=== PATIENT | male | born 1940 | race Caucasian/White ===

== ENCOUNTER 2016-07-16 10:39 | Inpatient (IN) ==
--- NOTE | 2016-07-16 10:42 | Emergency Department Note ---
Disposition Clinical Impression: Acute exacerbation of chronic obstructive airways disease, Failure of outpatient treatment, Renal insufficiency Disposition: Admitted As Inpatient Condition: Fair Referrals: Jocelyne Santiago CNP [Primary Care Provider] - Forms: ED Satisfaction Letter SOB HPI - General Chief Complaint: ED Shortness of Breath/Dyspnea Stated Complaint: NICOLE Time Seen by Provider: 07/16/16 10:43 Source: patient, family Mode of arrival: private vehicle Limitations: no limitations Nursing Notes Reviewed: Yes Vital Signs Reviewed: Yes - History of Present Illness The patient reports that he has been fighting increased shortness of breath over the course of over a month. He has seen his primary care provider at least 3 times this been through several hours of antibiotics and steroids. He has also been doing his home aerosols and inhalers. He has completed a course of Levaquin and most recently has had antibiotic shots through the office performed this past Monday, Monday and Monday. This has been performed because he has been refusing to come to the hospital. Today he has had more shortness of breath, nonproductive cough and wheezing and he has relented and presented to the emergency department. He states his cough is rapidly but he does not bring anything up. He does have baseline wheezing and significant dyspnea on exertion. He has not on any home oxygen. He denies any chest pain other than his lungs are sore with coughing. He denies associated diaphoresis, nausea, jaw, arm or back pain. He does report some chills but denies fevers. Denies any new lower extremity swelling, immobilization or injury. He does have some swelling to his right ankle which has been evaluated in the last month with a negative Doppler. He denies any ill exposures. Pt Subjective Complaint: shortness of breath Onset (ago): week(s) Context: recent illness Severity: moderate, severe Consistency/Duration: gradually worsening Improves with: rest, bronchodilators Worsens with: exertion, coughing Known history of: COPD Associated symptoms: Reports: pain with inspiration, cough, wheezing. Denies: chest pain, fever, sputum production, orthopnea, lower extremity pain, polyuria , polydipsia, parasthesias, palpitations, hemoptysis, diaphoresis, nausea/ vomiting, syncope, abdominal pain, rash Treatment prior to arrival: bronchodilator, other (Antibiotics and steroids) Cough present: Yes Cough Description: Voluntary, Hacking, Rattling Cough Frequency: Intermittent Sputum production: No - Related Data Home oxygen amount: none Home Medications Medication Instructions Recorded Confirmed Amlodipine Besylate [Norvasc] 10 mg PO DAILY 12/08/14 07/16/16 Carvedilol [Coreg] 25 mg PO BID 12/08/14 07/16/16 HydrALAZINE 25 mg PO BID 12/08/14 07/16/16 LORazepam [Lorazepam] 2 mg PO HS 07/16/16 07/16/16 Melatonin 5 mg PO HS 07/16/16 07/16/16 Omeprazole 20 mg PO DAILY 07/16/16 07/16/16 Tamsulosin [Flomax] 0.8 mg PO DAILY 07/16/16 07/16/16 Allergies Allergy/AdvReac Type Severity Reaction Status Date / Time No Known Allergies Allergy Verified 12/08/14 15:22 All systems ED: reviewed and negative except as stated. Past Medical History - Past Medical History Attestation: Yes The following information was validated with the patient. Source: patient, old records reviewed, obtained from family, nursing notes reviewed Medical history: Reports: COPD, coronary artery disease, CVA, myocardial infarction, osteoporosis, peripheral artery disease, renal disease (Creatinine 1.4-1.6), syncope, TIA, other (Lipoma on the upper chest, benign prostatic hypertrophy) Surgical history: Reports: angioplasty/stent (3), LE vascular intervention Psychiatric history: Reports: anxiety - Social History Smoking Status: Light tobacco smoker Smokeless Tobacco Status: Yes (chewing tobacco) Alcohol use: Reports: none Drug use: Reports: none Physical Exam - General Limitations: no limitations General appearance: alert, in no apparent distress - Head Head exam: atraumatic, normocephalic, normal inspection - Eye Eye exam: Present: normal appearance, PERRL, EOMI. Absent: scleral icterus, conjunctival injection - ENT ENT exam: normal exam, normal oropharynx, mucous membranes moist - Neck Neck exam: Present: normal inspection, full ROM, trachea midline - Chest Chest inspection: Present: normal inspection, symmetric chest wall rise, other ( Large lipoma over the region of the manubrium.). Absent: tenderness - Respiratory Respiratory exam: Present: respiratory distress, wheezes, prolonged expiratory phase. Absent: accessory muscle use - Cardiovascular Cardiovascular exam: Present: regular rate, normal rhythm, normal heart sounds. Absent: tachycardia, JVD - Abdominal Exam Abdominal exam: Present: soft, Non-Tender, normal bowel sounds. Absent: tenderness, distention, guarding, rebound, rigidity - Extremities Exam Extremities exam: Present: normal inspection, full ROM, normal capillary refill. Absent: tenderness, pedal edema, calf tenderness - Expanded Lower Extremity Exam Neurovascular/Tendon exam: Present: normal capillary refill. Absent: motor deficit, sensory deficit, tendon deficit Gait: observed and normal - Back Exam Back exam: Present: normal inspection, full ROM. Absent: tenderness - Neurological Exam Neurological exam: Present: alert, oriented X3, normal gait. Absent: motor sensory deficit - Psychiatric Psychiatric exam: Present: normal affect, normal mood - Skin Skin exam: Present: warm, dry, intact, normal color. Absent: diaphoresis, pallor Course Course Narrative: All labs, x-rays and imaging is discussed with the patient and his daughter. He has had extensive outpatient treatment of this with clear outpatient failure. It is recommended that he be brought in the hospital for more intensive treatment. This has been discussed with Dr. Marquez and verbal orders obtained for his observation period. Vital Signs Temperature 99.0 F 07/16/16 10:47 Pulse Rate 70 07/16/16 10:47 Respiratory Rate 28 07/16/16 10:47 Blood Pressure 144/79 07/16/16 10:47 O2 Sat by Pulse Oximetry 90 L 07/16/16 10:47 Temperature 99.0 F 07/16/16 10:49 Pulse Rate 75 07/16/16 11:31 Respiratory Rate 24 07/16/16 11:31 Blood Pressure 125/78 07/16/16 11:31 O2 Sat by Pulse Oximetry 95 07/16/16 11:31 Oxygen Delivery Oxygen Delivery Nasal Cannula Shortness of Breath/Dyspnea - Differential Diagnosis Likely: acute exacerbation of chronic obstructive airways disease, pneumonia, asthma with exacerbation - Medical Records Medical records reviewed: Yes I reviewed the patient's medical records. XR/XR chest 2V IMPRESSION: Chronic bibasilar atelectasis and/or fibrosis. No acute process seen. D/ / 07/04/2016 17:28:15 Pedro Abrams MD / [facility] XR/XR ankle complete min 3V RT IMPRESSION: No acute osseous abnormality. D/ / 06/23/2016 16:13:41 Karlo Gipson MD / Shyanne Obando CT/CT chest wo con IMPRESSION: 1. No acute abnormality in the chest. 2. 7 mm right lower lobe nodule, which may be a partially calcified granuloma. Follow-up per the CT Fleischner criteria is recommended. 3. Moderate centrilobular emphysema. 4. Calcified pleural plaque, consistent with prior asbestos exposure. 5. Severe coronary artery disease. 6. Large superior anterior chest wall lipoma. D/ 09/22/2015 18:16:37 Joseph Tafoya MD / Carmen Badillo - Lab Data Lab results reviewed: Yes I reviewed the patient's lab results. Result diagrams: 07/16/16 11:10 07/16/16 11:10 Lab Results 07/16/16 07/16/16 07/16/16 Range/Units 11:10 11:10 11:10 WBC 10.6 (4.3-11.1) K/mcL RBC 4.85 (4.19-5.50) M/mcL Hgb 13.5 (12.9-16.9) g/dL Hct 40.9 (37.5-50.1) % MCV 84.3 (83.0-100.0) fL MCH 27.8 L (28.0-33.3) pg MCHC 33.0 (31.6-35.5) g/dL RDW 16.3 H (11.5-14.5) % Plt Count 213 (140-400) K/mcL MPV 9.1 L (9.4-12.4) fL Immature Gran % 0.6 (0-4) % Seg Neutrophils % 74.8 % Lymphocytes % 10.1 % Monocytes % 10.4 % Eosinophils % 3.9 % Basophils % 0.2 % Neutrophils # 8.0 (1.6-8.9) K/mcL Lymphocytes # 1.1 (0.6-4.6) K/mcL Monocytes # 1.1 (0.0-1.3) K/mcL Eosinophils # 0.4 (0.0-0.6) K/mcL Basophils # 0.0 (0.0-0.2) K/mcL PT 11.0 (9.4-12.1) Seconds INR 1.0 APTT 28.6 (26.0-36.0) Seconds VBG Lactic Acid (0.5-2.2) mmol/L Sodium 139 (136-145) mEq/L Potassium 4.5 (3.5-4.5) mEq/L Chloride 102 (98-109) mEq/L Carbon Dioxide 25 (19-29) mEq/L BUN 39 H (8-26) mg/dL Creatinine 1.60 H (0.72-1.25) mg/dL Est GFR ( Amer) 51 L (> 60) Est GFR (Non-Af Amer) 42 L (> 60) BUN/Creatinine Ratio 24 (6-26) Glucose 121 H (70-99) mg/dL Calculated Osmolality 299 (280-300) Calcium 9.1 (8.6-10.8) mg/dL Troponin I (0-0.03) ng/mL B-Natriuretic Peptide (0-100) pg/mL 07/16/16 07/16/16 07/16/16 Range/Units 11:10 11:10 11:10 WBC (4.3-11.1) K/mcL RBC (4.19-5.50) M/mcL Hgb (12.9-16.9) g/dL Hct (37.5-50.1) % MCV (83.0-100.0) fL MCH (28.0-33.3) pg MCHC (31.6-35.5) g/dL RDW (11.5-14.5) % Plt Count (140-400) K/mcL MPV (9.4-12.4) fL Immature Gran % (0-4) % Seg Neutrophils % % Lymphocytes % % Monocytes % % Eosinophils % % Basophils % % Neutrophils # (1.6-8.9) K/mcL Lymphocytes # (0.6-4.6) K/mcL Monocytes # (0.0-1.3) K/mcL Eosinophils # (0.0-0.6) K/mcL Basophils # (0.0-0.2) K/mcL PT (9.4-12.1) Seconds INR APTT (26.0-36.0) Seconds VBG Lactic Acid 0.9 (0.5-2.2) mmol/L Sodium (136-145) mEq/L Potassium (3.5-4.5) mEq/L Chloride (98-109) mEq/L Carbon Dioxide (19-29) mEq/L BUN (8-26) mg/dL Creatinine (0.72-1.25) mg/dL Est GFR ( Amer) (> 60) Est GFR (Non-Af Amer) (> 60) BUN/Creatinine Ratio (6-26) Glucose (70-99) mg/dL Calculated Osmolality (280-300) Calcium (8.6-10.8) mg/dL Troponin I 0.02 (0-0.03) ng/mL B-Natriuretic Peptide 40 (0-100) pg/mL - Radiology Data Radiology results reviewed: Yes I reviewed the patient's radiology results. Single view chest x-ray is performed. This does not demonstrate evidence for infiltrate, effusion, pneumothorax, foreign body or heart failure. The cardiac silhouette is normal. The patient is hyperexpanded consistent with COPD and does have some basilar atelectasis present. I do not see abnormality to the osseous structures of the chest. Images are compared to chest x-ray from 2016. This is on my interpretation. Impressions Chest X-Ray 07/16/16 10:49 IMPRESSION: Bibasilar atelectasis or scarring. Sequela of granulomatous disease. D/ / Brandan Cook MD / Brandan Cook MD Interpreting Provider: Brandan Cook MD - EKG Data EKG attestation: Yes I reviewed and interpreted this EKG. EKG shows normal: Reports: sinus rhythm, axis, intervals, QRS complexes, ST-T waves Rate: Reports: normal (77) Rhythm: Reports: PVC's Interpretation: Reports: no acute changes, nonspecific ST-T wave changes
[2016-07-16] MEDS ORDERED: Ipratropium/Albuterol Neb 3 ML IH ONE (10:49)
[2016-07-16] MEDS ORDERED: CefTRIAXone 1,000 MG in D5% in Water (Mini-Bag+) 100 ML IVPB ONE (10:49)
[2016-07-16] MEDS ORDERED: Azithromycin 250 MG TABLET PO ONE (10:49)
[2016-07-16] MEDS ORDERED: 0.9 % Sodium Chloride 1,000 ML IVC SCH ×2 (11:15→12:09)
[2016-07-16 11:18] LABS: Basophils % 0.2 %; Eosinophils # 0.4 K/mcL (0.0-0.6); Eosinophils % 3.9 %; Hematocrit 40.9 % (37.5-50.1); Hemoglobin 13.5 g/dL (12.9-16.9); Immature Granulocytes % 0.6 % (0-4); Lymphocytes # 1.1 K/mcL (0.6-4.6); Lymphocytes % 10.1 %; Mean Corpuscular Hemoglobin 27.8 pg (28.0-33.3); Mean Corpuscular Volume 84.3 fL (83.0-100.0); Mean Platelet Volume 9.1 fL (9.4-12.4); Monocytes # 1.1 K/mcL (0.0-1.3); Monocytes % 10.4 %; Platelet Count 213 K/mcL (140-400); Red Blood Count 4.85 M/mcL (4.19-5.50); Red Cell Distribution Width 16.3 % (11.5-14.5); Segmented Neutrophils % 74.8 %
[2016-07-16 11:26] LABS: Activated Partial Thrombo Time 28.6 Seconds (26.0-36.0)
[2016-07-16 11:33] LABS: Calcium 9.1 mg/dL (8.6-10.8); Potassium 4.5 mEq/L (3.5-4.5)
[2016-07-16] MEDS ORDERED: Acetaminophen 325 MG TABLET PO PRN (12:09)
[2016-07-16] MEDS ORDERED: Albuterol 2.5 MG/3 ML NEBULIZER IH PRN (12:09)
[2016-07-16] MEDS ORDERED: Ibuprofen 400 MG TABLET PO PRN (12:09)
[2016-07-16] MEDS ORDERED: MOM Conc 10 ML UD.LIQ PO PRN (12:09)
[2016-07-16] MEDS ORDERED: Naloxone 0.4 MG/ML INJ IVP PRN (12:09)
[2016-07-16] MEDS ORDERED: Ondansetron ODT 4 MG TAB.RAPDIS SL PRN (12:09)
[2016-07-16] MEDS ORDERED: Ipratropium/Albuterol Neb 3 ML IH SCH (16:00)
[2016-07-16] MEDS ORDERED: MethylPREDNISolone 40 MG/ML VIAL IVP SCH (16:00)
--- NOTE | 2016-07-16 19:22 | Internal Med History&Physical ---
Date of Encounter: 07/16/16 Time of Encounter: 18:30 Assessment and Plan (1) Dyspnea Current visit: Yes Status: Acute A chest CT will be ordered without contrast. D-dimer will be done. Qualifiers: Dyspnea type: unspecified Qualified Code(s): R06.00 - Dyspnea, unspecified (2) Hypertension Current visit: Yes Status: Chronic Continue Norvasc, Coreg, and hydralazine. Qualifiers: Hypertension type: essential hypertension Qualified Code(s): I10 - Essential (primary) hypertension (3) CKD (chronic kidney disease) stage 3, GFR 30-59 ml/min Current visit: Yes Status: Acute IV fluids will be given and renal indices will be monitored. (4) BPH (benign prostatic hyperplasia) Current visit: Yes Status: Chronic Continue Flomax. We will check postvoid residual Qualifiers: Prostatic enlargement morphology: unspecified morphology Lower urinary tract symptom presence: symptoms present Qualified Code(s): N40.1 - Benign prostatic hyperplasia with lower urinary tract symptoms Internal Medicine - H&P: HPI Chief complaint: Dyspnea Admitted From: Home Plans for Post Hospital Care: Home History of present illness: Mr. Fonseca is a 76 year old male who came to the hospital stating he had increasing dyspnea over the past few weeks. He saw his PCP approximately 12 days ago and was told he should come to the hospital. He declined to do that so was given daily IM injections of antibiotic for 3 consecutive days and then placed on Levaquin orally for one week. He also received prednisone and nebulizer medication. He finished the Levaquin prescription approximately 3 days ago without feeling improvement. He came to the emergency room and was admitted to [facility] for ongoing care needs. His respiratory history is significant for having smoked from age [age] up to 2 packs per day. He had PFTs approximately 2010 and was told he had mild COPD. He does not use home oxygen. He has had minimal chest pain that seems to be worse on inspiration. He has had a cough that has generally been nonproductive. He had a chest CT September 2015 which showed a 7 mm right lower lobe nodule and moderate centrilobular emphysema. There was calcified pleural plaque consistent with prior asbestos exposure. Follow-up chest CT was recommended in 6-12 months Past [facility] HX - Past Medical History Medical history: COPD, coronary artery disease, CVA, myocardial infarction, osteoporosis, peripheral artery disease, renal disease, syncope, TIA, other Psychiatric history: anxiety - Past Surgical History Surgical History: angioplasty/stent, LE vascular intervention - Social History Smoking Status: Light tobacco smoker Smokeless Tobacco Status: Yes (chewing tobacco) Alcohol use: none Drug use: none Internal Medicine - H&P: Meds Amlodipine Besylate [Norvasc] 10 mg PO DAILY 12/08/14 [History] Carvedilol [Coreg] 25 mg PO BID 12/08/14 [History] HydrALAZINE 25 mg PO DAILY 12/08/14 [History] LORazepam [Lorazepam] 2 mg PO HS 07/16/16 [History] Melatonin 5 mg PO HS 07/16/16 [History] Omeprazole 20 mg PO DAILY 07/16/16 [History] Tamsulosin [Flomax] 0.4 mg PO DAILY 07/16/16 [History] Allergies No Known Allergies Allergy (Verified 12/08/14 15:22) All Systems PM: A 10-system review of systems was performed and is negative for pertinent findings except as documented above in the HPI. Review of systems: Gen.: His weight is increased approximately 14 pounds in the past year Cardiovascular: He has history of hypertension. He has known ASHD status post RI with 3 stents. His most recent stent and heart catheter were 2016 at [facility]. He denies known heart failure DVT or pulmonary embolus Respiratory: As per history of present illness GI: He denies disorders of his liver gallbladder or exocrine pancreas : He has BPH and takes Flomax. He has had multiple UTIs in the past. He has been told he has a kidney cyst. He was unaware he had chronic kidney disease. Neurologic: He claims he had intracranial bleed resulting in mild left leg weakness. Denies seizures Endocrine: He has hyperlipidemia but denies diabetes or thyroid disease Hematology/oncology: He has had skin cancers but denies internal malignancies or other blood disorders or anemia Psychiatric: He denies anxiety depression or other mental health issues Musk skeletal: He has minimal arthritis. He is uncertain if he has been diagnosed with gout. He denies other bone joint or muscle disorders. - Constitutional Vitals: Temp Pulse Resp BP Pulse Ox 97.7 F 88 20 145/77 96 07/16/16 18:23 07/16/16 18:23 07/16/16 18:23 07/16/16 18:23 07/16/16 18:23 Exam: Gen.: He is a well-developed well-nourished male lying in bed who appears in no severe distress at present time. HEENT: Head is atraumatic and normocephalic. Eyes: EOMI. There is no scleral icterus. Mouth: Mucosa is moist. Neck: Supple and nontender. There is no thyromegaly or adenopathy noted. Heart: Regular without murmurs gallops or ectopics. Lungs: No wheezes or crackles are heard. Abdomen: Soft and nontender. No masses or guarding are noted. Extremities: There is no cyanosis edema or clubbing noted. Dorsalis pedis and posterior tibial pulses are 1-2 over 2 bilaterally. Neurologic: Mental status: He is talkative and a good historian. Cranial nerves : Smile is symmetric. Forehead wrinkles bilaterally. Tongue protrudes midline. EOMI. Motor: There is no pronator drift. Cerebellar: Finger to nose is intact bilaterally. Skin: Warm and dry. He has a large cystic mass in his upper midline sternal area subcutaneously Internal Med - H&P Results - Labs CBC & Chem 7: 07/16/16 11:10 07/16/16 11:10
[2016-07-16] MEDS ORDERED: *HR* LORazepam 1 MG TABLET PO SCH (21:00)
[2016-07-16] MEDS ORDERED: Melatonin 3 MG TABLET PO SCH (21:00)
[2016-07-16] MEDS: Lactobacillus 1 EACH CAP.SPRINK PO SCH (21:47)
[2016-07-17 05:58] LABS: Basophils % 0.1 %; Eosinophils % 0.1 %; Hematocrit 35.7 % (37.5-50.1); Hemoglobin 11.5 g/dL (12.9-16.9); Immature Granulocytes % 0.6 % (0-4); Lymphocytes # 0.8 K/mcL (0.6-4.6); Lymphocytes % 6.6 %; Mean Corpuscular HGB Conc 32.2 g/dL (31.6-35.5); Mean Corpuscular Hemoglobin 27.4 pg (28.0-33.3); Mean Corpuscular Volume 85.2 fL (83.0-100.0); Mean Platelet Volume 9.6 fL (9.4-12.4); Monocytes # 0.3 K/mcL (0.0-1.3); Monocytes % 2.5 %; Neutrophils # 10.3 K/mcL (1.6-8.9); Platelet Count 202 K/mcL (140-400); Red Blood Count 4.19 M/mcL (4.19-5.50); Red Cell Distribution Width 15.9 % (11.5-14.5); Segmented Neutrophils % 90.1 %
[2016-07-17] MEDS ORDERED: *HR* Enoxaparin 40 MG/0.4 ML SYRINGE SQ SCH (06:00)
[2016-07-17 06:21] LABS: Albumin 2.6 g/dL (3.5-5.0); Albumin/Globulin Ratio 0.9 (1.1-2.2); Bilirubin,Total 0.2 mg/dL (0.2-1.2); Calcium 8.4 mg/dL (8.6-10.8); Potassium 4.9 mEq/L (3.5-4.5); Total Protein 5.6 g/dL (6.0-8.3)
[2016-07-17 07:00] VITALS: BP 176/90
[2016-07-17] MEDS ORDERED: PredniSONE 10 MG TABLET PO SCH (08:00)
[2016-07-17] MEDS ORDERED: NON-FORMULARY MEDICATION 1 EACH EACH (Omeprazole [Omeprazole] 20 MG) PO SCH (09:00)
[2016-07-17] MEDS ORDERED: Azithromycin 250 MG TABLET PO SCH (09:00)
[2016-07-17] MEDS ORDERED: CefTRIAXone 1,000 MG in D5% in Water (Mini-Bag+) 100 ML IVPB SCH (09:00)
[2016-07-17] MEDS: Lactobacillus 1 EACH CAP.SPRINK PO SCH (09:38)
--- NOTE | 2016-07-17 11:04 | Discharge Summary ---
Date of Encounter: 07/17/16 Time of Encounter: 10:50 - Discharge Diagnosis (1) Pneumonia Priority: Primary Status: Acute Qualifiers: Pneumonia type: due to unspecified organism Laterality: right Lung location: lower lobe of lung Qualified Code(s): J18.1 - Lobar pneumonia, unspecified organism (2) Hypertension Priority: Secondary Status: Chronic Qualifiers: Hypertension type: essential hypertension Qualified Code(s): I10 - Essential (primary) hypertension (3) CKD (chronic kidney disease) stage 3, GFR 30-59 ml/min Priority: Secondary Status: Chronic (4) BPH (benign prostatic hyperplasia) Priority: Secondary Status: Chronic Qualifiers: Prostatic enlargement morphology: unspecified morphology Lower urinary tract symptom presence: symptoms present Qualified Code(s): N40.1 - Benign prostatic hyperplasia with lower urinary tract symptoms - Discharge Medications Prescriptions: Cefuroxime PO [Ceftin] 500 mg PO Q12HR #10 tablet Azithromycin [Zithromax] 250 mg PO DAILY #5 tablet Lactobacillus [Culturelle] 1 each PO BID #10 cap.sprink Home Medications: Amlodipine Besylate [Norvasc] 10 mg PO DAILY 12/08/14 [History] Carvedilol [Coreg] 25 mg PO BID 12/08/14 [History] HydrALAZINE 25 mg PO DAILY 12/08/14 [History] LORazepam [Lorazepam] 2 mg PO HS 07/16/16 [History] Melatonin 5 mg PO HS 07/16/16 [History] Omeprazole 20 mg PO DAILY 07/16/16 [History] Tamsulosin [Flomax] 0.4 mg PO DAILY 07/16/16 [History] Azithromycin [Zithromax] 250 mg PO DAILY #5 tablet 07/17/16 [Rx] Cefuroxime PO [Ceftin] 500 mg PO Q12HR #10 tablet 07/17/16 [Rx] Lactobacillus [Culturelle] 1 each PO BID #10 cap.sprink 07/17/16 [Rx] Allergies/Adverse Reactions: Allergies No Known Allergies Allergy (Verified 12/08/14 15:22) Date of admission: 07/16/16 19:08 Primary care physician: Jocelyne Santiago CNP - Patient Status Disposition: Home, Self-Care Condition: Fair Functional capacity at discharge: uses cane/walker Overall status at discharge: patient is progressing back to baseline - Discharge Instructions Follow Up With: Jocelyne Santiago CNP [Primary Care Provider] - 1 week - Diet and Activity Activity: resume usual activities as tolerated Diet: advance to your usual diet Hospital course: Mr. Fonseca is a 76 year old male who came to the hospital stating he had increasing dyspnea over the past few weeks. He saw his PCP approximately 12 days ago and was told he should come to the hospital. He declined to do that so was given daily IM injections of antibiotic for 3 consecutive days and then placed on Levaquin orally for one week. He also received prednisone and nebulizer medication. He finished the Levaquin prescription approximately 3 days ago without feeling improvement. He came to the emergency room and was admitted to [facility] for ongoing care needs. Initial orders were written by the emergency room physician. I saw him on July 16 and performed a history and physical. He was started empirically on Rocephin and Zithromax. A chest CT was ordered and showed right lower lobe infiltrate. There were stable right lower lobe nodules compared to the study of 12/30/2015. Follow-up study should be done at 18-24 months. His PCP can coordinate this. D-dimer was 767 which is acceptable for age corrected normal range. When I saw him on July 17 he felt clinically improved. His IV became dislodged and several attempts at restarting it were unsuccessful. He felt he was stable for discharge home which I felt was reasonable. He will have room air oximetry checked prior to discharge on a 6 minute walk. He will follow with his PCP Abby Santiago CNP within 1 week. He will continue on antibiotic and probiotic for 5 additional days at discharge. - Time Spent with Patient Total time spent providing and/or coordinating discharge services: - Constitutional Vitals: Temp Pulse Resp BP Pulse Ox 97.5 F L 95 20 176/90 96 07/17/16 06:56 07/17/16 06:56 07/17/16 06:56 07/17/16 06:56 07/17/16 06:56 - VTE Documentation of Mechanical Device: Graduated compression elastic hosiery
--- NOTE | 2016-07-18 15:20 | Electrocardiograph Report ---
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
== END 2016-07-17 13:59 | disposition home or self-care (01) | DRG 190 ==
LOC: INPPIK 10:39 → EMEROOPIK 10:39 → INPPIK 13:11
PROVIDERS: ADMIT Internal Medicine; ATTEND Internal Medicine

== ENCOUNTER 2016-08-08 09:26 | Observation (INO) ==
--- NOTE | 2016-08-08 09:50 | Emergency Department Note ---
Disposition Clinical Impression: CKD (chronic kidney disease) stage 3, GFR 30-59 ml/min, Viral infection, Weakness generalized Disposition: Admitted As Inpatient Condition: Good Referrals: Jocelyne Santiago CNP [Primary Care Provider] - Forms: ED Satisfaction Letter General Adult HPI - General Chief complaint: ED Upper Respiratory Infection Stated complaint: Flu like symptoms Time Seen by Provider: 08/08/16 09:42 Source: patient Mode of arrival: private vehicle Limitations: no limitations Nursing Notes Reviewed: Yes Vital Signs Reviewed: Yes - History of Present Illness HPI Narrative: Patient presents with a chief complaint of "I do not feel good" and specific concern of that he has the flu or pneumonia. He states that he has had 3-4 days of "hurting all over" with some increase feet and leg swelling that has limited his ability to stand or walk. He relates he has had a cough which is nonproductive. He has been having a feeling of fevers and chills but has not checked his temperature. He reports nausea without vomiting resulting in significant decrease in oral intake. He states he has had some diarrhea without blood or mucus. He denies abdominal pain other than nausea and midepigastric region. He denies any back pain that is new. He denies urinary increased frequency but states he urinates all the time anyway. He denies any ill exposures or new rashes. He states he does get weak and dizzy with standing and has nearly fallen a couple times. He has been brought in by family he has not been able to take care of himself with this illness. They did call to the primary care provider who advised that he be brought immediately to the emergency department. Onset (ago): day(s) (4) Location: other (Generalized body pain and fatigue) Radiation: non-radiation Pain Severity: moderate Pain Scale: 6 Quality: aching, dull Consistency: constant Improves with: nothing Worsens with: movement Associated symptoms: Reports: cough, fever/chills, headaches, loss of appetite, malaise, nausea/vomiting, shortness of breath, weakness. Denies: confusion, chest pain, diaphoresis, rash, seizure, syncope - Related Data Home Medications Medication Instructions Recorded Confirmed Amlodipine Besylate [Norvasc] 10 mg PO DAILY 12/08/14 07/16/16 Carvedilol [Coreg] 25 mg PO BID 12/08/14 07/16/16 HydrALAZINE 25 mg PO DAILY 12/08/14 07/16/16 LORazepam [Lorazepam] 2 mg PO HS 07/16/16 07/16/16 Melatonin 5 mg PO HS 07/16/16 07/16/16 Omeprazole 20 mg PO DAILY 07/16/16 07/16/16 Tamsulosin [Flomax] 0.4 mg PO DAILY 07/16/16 07/16/16 Allergies Allergy/AdvReac Type Severity Reaction Status Date / Time No Known Allergies Allergy Verified 12/08/14 15:22 All systems ED: reviewed and negative except as stated. Past Medical History - Past Medical History Attestation: Yes The following information was validated with the patient. Source: patient, old records reviewed, obtained from family, nursing notes reviewed Medical history: Reports: COPD, coronary artery disease, CVA, myocardial infarction, osteoporosis, peripheral artery disease, renal disease, syncope, TIA , other Surgical history: Reports: angioplasty/stent, LE vascular intervention Psychiatric history: Reports: anxiety - Social History Smoking Status: Light tobacco smoker Smokeless Tobacco Status: Yes (chewing tobacco) Alcohol use: Reports: none Drug use: Reports: none Physical Exam - General Limitations: no limitations General appearance: alert, in no apparent distress - Head Head exam: atraumatic, normocephalic, normal inspection - Eye Eye exam: Present: normal appearance, PERRL, EOMI. Absent: scleral icterus, conjunctival injection - ENT ENT exam: normal exam, normal oropharynx, mucous membranes moist - Neck Neck exam: Present: normal inspection, full ROM, trachea midline. Absent: tenderness, meningismus - Chest Chest inspection: Present: normal inspection, symmetric chest wall rise - Respiratory Respiratory exam: Present: normal lung sounds bilaterally. Absent: respiratory distress, wheezes, prolonged expiratory phase - Cardiovascular Cardiovascular exam: Present: regular rate, normal rhythm, normal heart sounds. Absent: tachycardia - Abdominal Exam Abdominal exam: Present: soft, Non-Tender, normal bowel sounds. Absent: tenderness, distention, guarding, rebound, rigidity - Extremities Exam Extremities exam: Present: normal inspection, full ROM, normal capillary refill , pedal edema (2-3+). Absent: tenderness, calf tenderness - Expanded Lower Extremity Exam Neurovascular/Tendon exam: Present: normal capillary refill. Absent: motor deficit, sensory deficit, tendon deficit Gait: not tested/not observed - Back Exam Back exam: Present: normal inspection, full ROM. Absent: tenderness, CVA tenderness (R), CVA tenderness (L) - Neurological Exam Neurological exam: Present: alert, oriented X3 - Psychiatric Psychiatric exam: Present: normal affect, normal mood - Skin Skin exam: Present: warm, dry, intact, pallor. Absent: rash, diaphoresis Course Course Narrative: All lab, EKG and imaging is discussed with the patient and family. Given the patient's weakness and inability to get around his single residence, I feel be best to bring him in for observation, hydration and to follow him clinically to better assess this safety and resources for discharge. Pages been placed to Dr. Marquez to assist in his inpatient treatment. 1210: Dr. Marquez agrees with observation this patient. We are awaiting bed placement. Vital Signs Temperature 98.5 F 08/08/16 09:27 Pulse Rate 69 08/08/16 09:27 Respiratory Rate 18 08/08/16 09:27 Blood Pressure 140/66 08/08/16 09:27 O2 Sat by Pulse Oximetry 94 08/08/16 09:27 Temperature 98.5 F 08/08/16 11:58 Pulse Rate 73 08/08/16 11:58 Respiratory Rate 22 08/08/16 11:58 Blood Pressure 134/66 08/08/16 11:58 O2 Sat by Pulse Oximetry 91 08/08/16 11:58 Oxygen Delivery Oxygen Delivery Room Air Medical Decision Making - Medical Records Medical records reviewed: Yes I reviewed the patient's medical records. - Lab Data Lab results reviewed: Yes I reviewed the patient's lab results. Lab results narrative: Influenza A and B are negative. The patient's usual creatinine is in a range of 1.6-1.97 over the past 4 months. Result diagrams: 08/08/16 10:00 08/08/16 10:00 Lab Results 08/08/16 08/08/16 08/08/16 Range/Units 10:00 10:00 10:00 WBC 13.7 H (4.3-11.1) K/mcL RBC 4.14 L (4.19-5.50) M/mcL Hgb 11.6 L (12.9-16.9) g/dL Hct 36.1 L (37.5-50.1) % MCV 87.2 (83.0-100.0) fL MCH 28.0 (28.0-33.3) pg MCHC 32.1 (31.6-35.5) g/dL RDW 16.4 H (11.5-14.5) % Plt Count 174 (140-400) K/mcL MPV 9.5 (9.4-12.4) fL Immature Gran % 0.5 (0-4) % Seg Neutrophils % 76.9 % Lymphocytes % 8.1 % Monocytes % 13.6 % Eosinophils % 0.8 % Basophils % 0.1 % Neutrophils # 10.5 H (1.6-8.9) K/mcL Lymphocytes # 1.1 (0.6-4.6) K/mcL Monocytes # 1.9 H (0.0-1.3) K/mcL Eosinophils # 0.1 (0.0-0.6) K/mcL Basophils # 0.0 (0.0-0.2) K/mcL Sodium 140 (136-145) mEq/L Potassium 4.4 (3.5-4.5) mEq/L Chloride 102 (98-109) mEq/L Carbon Dioxide 26 (19-29) mEq/L BUN 27 H (8-26) mg/dL Creatinine 1.93 H (0.72-1.25) mg/dL Est GFR ( Amer) 41 L (> 60) Est GFR (Non-Af Amer) 34 L (> 60) BUN/Creatinine Ratio 14 (6-26) Glucose 121 H (70-99) mg/dL Calculated Osmolality 296 (280-300) Calcium 9.0 (8.6-10.8) mg/dL Total Bilirubin 1.1 (0.2-1.2) mg/dL Direct Bilirubin 0.4 (0.0-0.5) mg/dL Indirect Bilirubin 0.7 (0.0-1.2) mg/dL AST 12 (5-34) Units/L ALT 10 (0-55) Units/L Alkaline Phosphatase 39 (38-126) Units/L Troponin I 0.03 (0-0.03) ng/mL B-Natriuretic Peptide (0-100) pg/mL Serum Total Protein 6.5 (6.0-8.3) g/dL Albumin 2.8 L (3.5-5.0) g/dL Globulin 3.7 H (2.4-3.5) g/dL Albumin/Globulin Ratio 0.8 L (1.1-2.2) Urine Color (Yellow) Urine Clarity (Clear) Urine pH (5.0-8.0) pH Units Ur Specific Seffner (1.010-1.025) Urine Protein (Neg-Trace) mg/dL Urine Glucose (UA) (Normal) mg/dL Urine Ketones (Negative) mg/dL Urine Blood (Negative) Urine Nitrite (Negative) Urine Bilirubin (Negative) Urine Urobilinogen (Normal) mg/dL Ur Leukocyte Esterase (Negative) Urine Microscopic RBC (0-3) per hpf Urine Microscopic WBC (0-3) per hpf Ur Squamous Epith Cells (None-Few) per lpf Amorphous Sediment (Few) Granular Casts (None Seen) per lpf Urine Mucus (Few) Ur Culture Indicated? (NO) 08/08/16 08/08/16 Range/Units 10:00 11:14 WBC (4.3-11.1) K/mcL RBC (4.19-5.50) M/mcL Hgb (12.9-16.9) g/dL Hct (37.5-50.1) % MCV (83.0-100.0) fL MCH (28.0-33.3) pg MCHC (31.6-35.5) g/dL RDW (11.5-14.5) % Plt Count (140-400) K/mcL MPV (9.4-12.4) fL Immature Gran % (0-4) % Seg Neutrophils % % Lymphocytes % % Monocytes % % Eosinophils % % Basophils % % Neutrophils # (1.6-8.9) K/mcL Lymphocytes # (0.6-4.6) K/mcL Monocytes # (0.0-1.3) K/mcL Eosinophils # (0.0-0.6) K/mcL Basophils # (0.0-0.2) K/mcL Sodium (136-145) mEq/L Potassium (3.5-4.5) mEq/L Chloride (98-109) mEq/L Carbon Dioxide (19-29) mEq/L BUN (8-26) mg/dL Creatinine (0.72-1.25) mg/dL Est GFR ( Amer) (> 60) Est GFR (Non-Af Amer) (> 60) BUN/Creatinine Ratio (6-26) Glucose (70-99) mg/dL Calculated Osmolality (280-300) Calcium (8.6-10.8) mg/dL Total Bilirubin (0.2-1.2) mg/dL Direct Bilirubin (0.0-0.5) mg/dL Indirect Bilirubin (0.0-1.2) mg/dL AST (5-34) Units/L ALT (0-55) Units/L Alkaline Phosphatase (38-126) Units/L Troponin I (0-0.03) ng/mL B-Natriuretic Peptide 76 (0-100) pg/mL Serum Total Protein (6.0-8.3) g/dL Albumin (3.5-5.0) g/dL Globulin (2.4-3.5) g/dL Albumin/Globulin Ratio (1.1-2.2) Urine Color Yellow (Yellow) Urine Clarity Clear (Clear) Urine pH 6.5 (5.0-8.0) pH Units Ur Specific Seffner 1.020 (1.010-1.025) Urine Protein >=300 H (Neg-Trace) mg/dL Urine Glucose (UA) Normal (Normal) mg/dL Urine Ketones Negative (Negative) mg/dL Urine Blood Negative (Negative) Urine Nitrite Negative (Negative) Urine Bilirubin Negative (Negative) Urine Urobilinogen Normal (Normal) mg/dL Ur Leukocyte Esterase Negative (Negative) Urine Microscopic RBC 0-3 (0-3) per hpf Urine Microscopic WBC 3-5 H (0-3) per hpf Ur Squamous Epith Cells Few (None-Few) per lpf Amorphous Sediment Few (Few) Granular Casts Few H (None Seen) per lpf Urine Mucus Few (Few) Ur Culture Indicated? NO (NO) - Radiology Data Radiology results reviewed: Yes I reviewed the patient's radiology results. Single view chest x-ray is performed. This does not demonstrate evidence for infiltrate, effusion, pneumothorax, foreign body or heart failure. The cardiac silhouette is normal. I do not see abnormality to the osseous structures of the chest. This is on my interpretation. Impressions Chest X-Ray 08/08/16 09:50 IMPRESSION: Stable pulmonary artery hypertension with no acute abnormality. D/ /08/2016 11:08:46 Timothy Maldonado MD / gabrielerter Interpreting Provider: Timothy Maldonado MD - EKG Data EKG #1 EKG attestation: Yes I reviewed and interpreted this EKG. EKG shows normal: sinus rhythm, axis, intervals, QRS complexes, ST-T waves Rate: normal (73) Rhythm: PVC's Interpretation: no acute changes, normal EKG
[2016-08-08] MEDS ORDERED: Ondansetron 4 MG/2 ML VIAL IVP ONE (09:52)
[2016-08-08] MEDS ORDERED: 0.9 % Sodium Chloride 1,000 ML IVC SCH ×2 (10:00→13:13)
[2016-08-08 10:10] LABS: Basophils % 0.1 %; Eosinophils # 0.1 K/mcL (0.0-0.6); Eosinophils % 0.8 %; Hematocrit 36.1 % (37.5-50.1); Hemoglobin 11.6 g/dL (12.9-16.9); Immature Granulocytes % 0.5 % (0-4); Lymphocytes # 1.1 K/mcL (0.6-4.6); Lymphocytes % 8.1 %; Mean Corpuscular HGB Conc 32.1 g/dL (31.6-35.5); Mean Corpuscular Volume 87.2 fL (83.0-100.0); Mean Platelet Volume 9.5 fL (9.4-12.4); Monocytes # 1.9 K/mcL (0.0-1.3); Monocytes % 13.6 %; Neutrophils # 10.5 K/mcL (1.6-8.9); Platelet Count 174 K/mcL (140-400); Red Blood Count 4.14 M/mcL (4.19-5.50); Red Cell Distribution Width 16.4 % (11.5-14.5); Segmented Neutrophils % 76.9 %
[2016-08-08 10:28] LABS: Albumin 2.8 g/dL (3.5-5.0); Albumin/Globulin Ratio 0.8 (1.1-2.2); Bilirubin,Direct 0.4 mg/dL (0.0-0.5); Bilirubin,Indirect 0.7 mg/dL (0.0-1.2); Bilirubin,Total 1.1 mg/dL (0.2-1.2); Globulin 3.7 g/dL (2.4-3.5); Potassium 4.4 mEq/L (3.5-4.5); Total Protein 6.5 g/dL (6.0-8.3)
[2016-08-08 11:19] LABS: Bilirubin,Urine Negative (Negative); Blood,Urine Negative (Negative); Clarity,Urine Clear (Clear); Color,Urine Yellow (Yellow); Glucose,Urine (UA) Normal (Normal); Ketones,Urine Negative (Negative); Leukocyte Esterase,Urine Negative (Negative); Nitrite,Urine Negative (Negative); PH,Urine 6.5 pH Units (5.0-8.0); Protein,Urine >=300 mg/dL (Neg-Trace); Urobilinogen,Urine Normal (Normal)
[2016-08-08 11:26] LABS: Amorphous Sediment,Urine Few (Few); Granular Casts,Urine Few per lpf (None Seen); Mucus,Urine Few (Few); RBC,Urine 0-3 per hpf (0-3); Squamous Epithelial Cell,Urine Few per lpf (None-Few)
--- NOTE | 2016-08-08 11:58 | Electrocardiograph Report ---
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
[2016-08-08] MEDS ORDERED: Ondansetron 4 MG/2 ML VIAL IVP PRN (13:13)
[2016-08-08] MEDS ORDERED: Naloxone 0.4 MG/ML INJ IVP PRN (13:13)
[2016-08-08] MEDS ORDERED: MOM Conc 10 ML UD.LIQ PO PRN (13:13)
--- NOTE | 2016-08-08 15:46 | Internal Med History&Physical ---
Date of Encounter: 08/08/16 Time of Encounter: 15:25 Assessment and Plan (1) Diarrhea Current visit: Yes Status: Acute Suspect viral gastroenteritis. He reports he has had no diarrhea today. Will observe without further workup at this time. Qualifiers: Diarrhea type: unspecified type Qualified Code(s): R19.7 - Diarrhea, unspecified (2) Anemia Current visit: Yes Status: Acute We will order anemia testing in a.m. Qualifiers: Anemia type: unspecified type Qualified Code(s): D64.9 - Anemia, unspecified (3) Hypertension Current visit: No Status: Chronic Continue Coreg. Discontinue amlodipine because of edema. Qualifiers: Hypertension type: essential hypertension Qualified Code(s): I10 - Essential (primary) hypertension (4) CKD (chronic kidney disease) stage 3, GFR 30-59 ml/min Current visit: Yes Status: Chronic We will monitor renal indices. Internal Medicine - H&P: HPI Chief complaint: Diarrhea and weakness Admitted From: Home Plans for Post Hospital Care: Home History of present illness: Mr. Fonseca is a 76 year old male who came to the emergency room stating he had diarrhea for the preceding 3 days with progressive weakness. He had nausea with no vomiting. He felt fevered and chilled at times. He had rhinorrhea and slight cough with little productivity. He was evaluated in emergency room and felt to have possible viral infection. He was admitted to [facility] floor for ongoing care needs. He was hospitalized at [facility] approximately 3 weeks ago with pneumonia. Chest CT showed right lower lobe infiltrate with stable right lower lobe nodules compared to 12/30/2015 study. Follow-up CT was recommended in 18-24 months. Past Med Surg Social Fam HX - Past Medical History Medical history: COPD, coronary artery disease, CVA, myocardial infarction, osteoporosis, peripheral artery disease, renal disease, syncope, TIA, other Psychiatric history: anxiety - Past Surgical History Surgical History: angioplasty/stent, LE vascular intervention - Social History Smoking Status: Light tobacco smoker Smokeless Tobacco Status: Yes (chewing tobacco) Alcohol use: none Drug use: none Internal Medicine - H&P: Meds Amlodipine Besylate [Norvasc] 10 mg PO DAILY 12/08/14 [History] Carvedilol [Coreg] 25 mg PO BID 12/08/14 [History] HydrALAZINE 25 mg PO DAILY 12/08/14 [History] LORazepam [Lorazepam] 2 mg PO HS 07/16/16 [History] Melatonin 5 mg PO HS 07/16/16 [History] Omeprazole 20 mg PO DAILY 07/16/16 [History] Tamsulosin [Flomax] 0.4 mg PO DAILY 07/16/16 [History] Allergies No Known Allergies Allergy (Verified 12/08/14 15:22) All Systems PM: A 10-system review of systems was performed and is negative for pertinent findings except as documented above in the HPI. Review of systems: Gen.: His weight is increased from 87.09 kg at the 07/16/2016 hospitalization to 91.626 kg now Cardiovascular: He has history of hypertension. He has known ASHD status post [place] with 3 stents. His most recent stent and heart catheter were 2015 at [facility]. He denies known heart failure DVT or pulmonary embolus Respiratory: He smoked from age [age] up to 2 packs per day. He had PFTs approximately 2011 was told he had mild COPD. He was recently prescribed home oxygen but states he wears it very little. He had chest CT done during his last hospitalization as described per history of present illness GI: He denies disorders of his liver gallbladder or exocrine pancreas : He has BPH and takes Flomax. He has had multiple UTIs in the past. He has been told he has a kidney cyst. He has chronic kidney disease stage III. Neurologic: He claims he had intracranial bleed resulting in mild left leg weakness. He denies seizures Endocrine: He has hyperlipidemia but denies diabetes or thyroid disease Hematology/oncology: He has had skin cancers but denies internal malignancies or other blood disorders or anemia Psychiatric: He denies anxiety depression or other mental health issues Musk skeletal: He has minimal arthritis. He is uncertain if he has been diagnosed with gout. He denies other bone joint or muscle disorders. - Constitutional Vitals: Temp Pulse Resp BP Pulse Ox 98.8 F 70 17 127/65 95 08/08/16 14:20 08/08/16 14:20 08/08/16 14:20 08/08/16 14:20 08/08/16 14:20 Exam: Gen.: He is a well-developed well-nourished male who appears in no significant distress at present time HEENT: Head is atraumatic and normal cephalic. Eyes: EOMI. There is no scleral icterus. Mouth: Mucosa is moist. Neck: Supple and nontender. There is no thyromegaly or adenopathy noted. Heart: Regular without murmurs gallops or ectopics. Lungs: Has diminished breath sounds diffusely. No wheezes or crackles are heard. Abdomen: Soft and nontender. There is no mass or guarding noted Extremities: He has trace -1+ edema of the dorsum of the feet and lower anterior shins bilaterally. Dorsalis pedis and posterior tibial pulses are trace palpable bilaterally. His feet are warm to touch. Neurologic: Mental status: He is talkative and seems to be a fair to good historian. Cranial nerves: Smile is symmetric. Forehead wrinkles bilaterally. Tongue protrudes midline. EOMI. Motor: There is no pronator drift. Cerebellar: Finger to nose is intact bilaterally. Skin: Warm and dry Internal Med - H&P Results - Labs CBC & Chem 7: 08/08/16 10:00 08/08/16 10:00
[2016-08-08] MEDS: *HR* LORazepam 1 MG TABLET PO SCH (19:45)
[2016-08-09 06:01] LABS: Basophils % 0.2 %; Eosinophils # 0.1 K/mcL (0.0-0.6); Eosinophils % 1.3 %; Hemoglobin 10.8 g/dL (12.9-16.9); Immature Granulocytes % 0.4 % (0-4); Lymphocytes % 9.9 %; Mean Corpuscular HGB Conc 31.8 g/dL (31.6-35.5); Mean Corpuscular Hemoglobin 27.8 pg (28.0-33.3); Mean Corpuscular Volume 87.6 fL (83.0-100.0); Mean Platelet Volume 9.6 fL (9.4-12.4); Monocytes # 1.5 K/mcL (0.0-1.3); Monocytes % 14.5 %; Neutrophils # 7.7 K/mcL (1.6-8.9); Platelet Count 171 K/mcL (140-400); Red Blood Count 3.88 M/mcL (4.19-5.50); Red Cell Distribution Width 16.1 % (11.5-14.5); Segmented Neutrophils % 73.7 %
[2016-08-09 06:20] LABS: Calcium 8.3 mg/dL (8.6-10.8); Magnesium 1.9 mg/dL (1.6-2.6); Potassium 4.1 mEq/L (3.5-4.5)
[2016-08-09 10:28] LABS: Folate 14.6 ng/mL (7.0-31.4)
--- NOTE | 2016-08-09 11:22 | Internal Med Progress Note ---
Date of Encounter: 08/09/16 Time of Encounter: 11:10 - Assessment and plan (1) Diarrhea Current Visit: Yes Status: Acute Assessment and plan: August 09. Appears resolved. Will not workup further. Qualifiers: Diarrhea type: unspecified type Qualified Code(s): R19.7 - Diarrhea, unspecified (2) Anemia Current Visit: Yes Status: Acute Assessment and plan: August 09. Anemia testing showed iron 19, transferrin saturation 9%, transferrin 144, and ferritin 576. B12 and folate were normal. We will give a trial of ferrous sulfate with vitamin C. Qualifiers: Anemia type: unspecified type Qualified Code(s): D64.9 - Anemia, unspecified (3) Hypertension Current Visit: No Status: Chronic Assessment and plan: August 09. Continue Coreg and remain off amlodipine. Blood pressures are satisfactory. Qualifiers: Hypertension type: essential hypertension Qualified Code(s): I10 - Essential (primary) hypertension (4) CKD (chronic kidney disease) stage 3, GFR 30-59 ml/min Current Visit: Yes Status: Chronic Assessment and plan: August 09. Continue to monitor renal indices. - Subjective Interval history: August 09. He has no new complaints and feels better. Diarrhea remains resolved - Constitutional Vitals: Temp Pulse Resp BP Pulse Ox 97.6 F 68 17 138/81 95 08/09/16 11:08 08/09/16 11:08 08/09/16 11:08 08/09/16 11:08 08/09/16 11:08 Exam: He is resting comfortably in bed and appears in no acute distress. His affect is bright and cheerful. His edema has lessened. I reviewed his medications and lab results. Internal Medicine: Result - Labs CBC & Chem 7: 08/09/16 05:30 08/09/16 05:30 Labs: Short CBC 08/09/16 Range/Units 05:30 WBC 10.5 (4.3-11.1) K/mcL Hgb 10.8 L (12.9-16.9) g/dL Hct 34.0 L (37.5-50.1) % Plt Count 171 (140-400) K/mcL Neutrophils # 7.7 (1.6-8.9) K/mcL BMP 08/09/16 05:30 Sodium 140 Potassium 4.1 Chloride 105 Carbon Dioxide 23 BUN 23 Creatinine 1.85 H Glucose 104 H Calcium 8.3 L - VTE Documentation of Mechanical Device: Graduated compression elastic hosiery Consult Discharge Plan - Plan Referrals: Jocelyne Santiago CNP [Primary Care Provider] - 1 week
[2016-08-09] MEDS: *HR* LORazepam 1 MG TABLET PO SCH (21:14)
[2016-08-09] MEDS: Albuterol 2.5 MG/3 ML NEBULIZER IH SCH (21:56)
[2016-08-10] MEDS: Albuterol 2.5 MG/3 ML NEBULIZER IH SCH ×2 (03:55→10:24)
[2016-08-10] MEDS ORDERED: Ascorbic Acid 500 MG TABLET PO SCH (06:30)
[2016-08-10 08:54] VITALS: BP 149/70
--- NOTE | 2016-08-10 10:05 | Discharge Summary ---
Date of Encounter: 08/10/16 Time of Encounter: 09:55 - Discharge Diagnosis (1) Diarrhea Priority: Primary Status: Resolved Qualifiers: Diarrhea type: unspecified type Qualified Code(s): R19.7 - Diarrhea, unspecified (2) Anemia Priority: Secondary Status: Acute Qualifiers: Anemia type: unspecified type Qualified Code(s): D64.9 - Anemia, unspecified (3) Hypertension Priority: Secondary Status: Chronic Qualifiers: Hypertension type: essential hypertension Qualified Code(s): I10 - Essential (primary) hypertension (4) CKD (chronic kidney disease) stage 3, GFR 30-59 ml/min Priority: Secondary Status: Chronic - Discharge Medications Prescriptions: Ascorbic Acid [Vitamin C] 500 mg PO DAILY #30 tablet Bumetanide 0.5 mg PO DAILY #30 tablet Ferrous Sulfate 325 mg PO DAILY #30 tablet Home Medications: Carvedilol [Coreg] 25 mg PO BID 12/08/14 [History] LORazepam [Lorazepam] 2 mg PO HS 07/16/16 [History] Melatonin 10 mg PO HS 07/16/16 [History] Omeprazole 20 mg PO DAILY 07/16/16 [History] Tamsulosin [Flomax] 0.4 mg PO DAILY 07/16/16 [History] Ascorbic Acid [Vitamin C] 500 mg PO DAILY #30 tablet 08/10/16 [Rx] Bumetanide 0.5 mg PO DAILY #30 tablet 08/10/16 [Rx] Ferrous Sulfate 325 mg PO DAILY #30 tablet 08/10/16 [Rx] Allergies/Adverse Reactions: Allergies No Known Allergies Allergy (Verified 12/08/14 15:22) Date of admission: 08/08/16 12:35 Primary care physician: Jocelyne Santiago CNP - Patient Status Disposition: Home, Self-Care Condition: Good Functional capacity at discharge: uses cane/walker Overall status at discharge: patient is progressing back to baseline - Discharge Instructions Follow Up With: Jocelyne Santiago CNP [Primary Care Provider] - 1 week - Diet and Activity Activity: resume usual activities as tolerated, wear oxygen at night Diet: advance to your usual diet Hospital course: Mr. Fonseca is a 76 year old male who came to the emergency room stating he had diarrhea for the preceding 3 days with progressive weakness. He had nausea with no vomiting. He felt fevered and chilled at times. He had rhinorrhea and slight cough with little productivity. He was evaluated in emergency room and felt to have possible viral infection. He was admitted to [facility] floor for ongoing care needs. Initial orders were written by the emergency room physician. I saw him on August 08 and performed a history and physical. He had no further diarrhea after admission. I felt he likely had viral gastroenteritis. WBC and left shift normalized by 08/09/2016. Anemia testing showed iron 19, transferrin saturation 9%, ferritin 576, transferrin 144, B12 325, and folate 14.6. He will continue with ferrous sulfate and vitamin C upon discharge. Norvasc was discontinued and his edema lessened. He will remain off Norvasc at discharge and start Bumex 0.5 mg daily. Hydrochlorothiazide will be discontinued. Blood pressure remained satisfactory. On August 10 he felt he was stable for discharge home. He will follow with his PCP Jocelyne Santiago CNP within 1 week. I encouraged him to wear oxygen at bedtime and with activity during the daytime. - Time Spent with Patient Total time spent providing and/or coordinating discharge services: - Constitutional Vitals: Temp Pulse Resp BP Pulse Ox 98.0 F 70 24 149/70 94 08/10/16 08:53 08/10/16 08:53 08/10/16 08:53 08/10/16 08:53 08/10/16 08:53 - VTE Documentation of Mechanical Device: Graduated compression elastic hosiery
[2016-08-11] MEDS ORDERED: Ascorbic Acid 500 MG TABLET PO SCH (06:30)
== END 2016-08-10 11:40 | disposition home or self-care (01) ==
LOC: EMEROOPIK 09:26 → INPPIK 09:26
PROVIDERS: ADMIT Internal Medicine; ATTEND Internal Medicine

== ENCOUNTER 2018-03-15 08:46 | Inpatient (IN) ==
--- NOTE | 2018-03-15 08:48 | Emergency Department Note ---
Disposition Clinical Impression: Renal failure, Dehydration, Pneumonia Disposition: Admitted As Inpatient Condition: Fair Referrals: Jocelyne Santiago CNP [Primary Care Provider] - Forms: ED Satisfaction Letter Time of Disposition: 11:30 SOB HPI - General Chief Complaint: ED Shortness of Breath/Dyspnea Stated Complaint: Shortness of breath Time Seen by Provider: 03/15/18 08:48 Source: patient Mode of arrival: ambulatory Limitations: no limitations Nursing Notes Reviewed: Yes Vital Signs Reviewed: Yes - History of Present Illness 77-year-old male who presents today with shortness of breath. Has been treated as an outpatient with antibiotics it is not getting better. He remains short of breath. Stated on antibiotics albuterol steroids at home. States his doctor did not know what else to do and so she sent him in for evaluation. He states he has been dealing with this for a few weeks. He states his previously been told it is a lung nodule on chest x-ray and saw electric organ assembler about it who told him it could go either way but has not had any recent follow-up for this. Pt Subjective Complaint: shortness of breath - Related Data Home Medications Medication Instructions Recorded Confirmed Carvedilol [Coreg] 25 mg PO BID 12/08/14 03/15/18 LORazepam [Lorazepam] 2 mg PO HS 07/16/16 03/15/18 Melatonin 10 mg PO HS 07/16/16 03/15/18 Omeprazole 20 mg PO DAILY 07/16/16 03/15/18 Tamsulosin [Flomax] 0.4 mg PO DAILY 07/16/16 03/15/18 Amlodipine Besylate 03/15/18 Sulfamethoxazole/Trimeth DS 03/15/18 [Bactrim Ds] Previous Rx's Medication Instructions Recorded Ascorbic Acid [Vitamin C] 500 mg PO DAILY #30 tablet 08/10/16 Ammonium Lactate [Amlactin] 1 appl TP BID #1 bottle 04/12/17 Bumetanide 0.5 mg PO Q48H 365 Days tablet 04/12/17 Doxycycline 100 mg PO BID #10 capsule 04/12/17 Lactobacillus [Culturelle] 1 each PO BID #5 cap.sprink 04/12/17 cloNIDine HCl [CloNIDine HCl] 0.1 mg PO Q8H #90 tablet 04/12/17 levoFLOXacin [Levaquin] 500 mg PO DAILY #5 tablet 04/12/17 predniSONE [PredniSONE] 10 mg PO BIDWM #10 tablet 04/12/17 Allergies Allergy/AdvReac Type Severity Reaction Status Date / Time No Known Allergies Allergy Verified 04/10/17 15:06 Review of Systems: All other systems are negative except as noted/marked Chart generated with voice recognition software Nursing notes reviewed Old records reviewed Past Medical History - Past Medical History Attestation: Yes The following information was validated with the patient. Source: patient, old records reviewed, nursing notes reviewed Medical history: Reports: cancer, COPD, coronary artery disease, CVA, hyperlipidemia, hypertension, myocardial infarction, osteoporosis, peripheral artery disease, renal disease, syncope, TIA, other Surgical history: Reports: angioplasty/stent, LE vascular intervention Psychiatric history: Reports: anxiety - Social History Smoking Status: Former smoker Smokeless Tobacco Status: Yes (chewing tobacco) Alcohol use: Reports: none Drug use: Reports: none Physical Exam Physical exam General: mild distress, VSS Head: normocephalic, atraumatic Eyes: EOMI, PERRLA mouth: moist mucous membranes Neck: NO CLA, Supple Chest wall: normal rise, no crepitus, no deformity noted Lungs: diminished lung sounds and expiratory wheeze bilaterally Heart: RRR Abd: soft, nontender, BS normal : deferred MSK: strength equal in all four extremities Ext: moves all four extremities, no obvious deformities Skin: cap refill normal, warm, dry neuro : CN2-12 grossly intact, A&Ox3 Psych: normal affect, not anxious Course Vital Signs Temperature 97.6 F 03/15/18 08:48 Pulse Rate 79 03/15/18 08:48 Respiratory Rate 18 03/15/18 08:48 Blood Pressure 155/74 03/15/18 08:48 O2 Sat by Pulse Oximetry 96 03/15/18 08:48 Temperature 97.6 F 03/15/18 08:48 Pulse Rate 73 03/15/18 11:10 Respiratory Rate 18 03/15/18 11:10 Blood Pressure 142/79 03/15/18 11:10 O2 Sat by Pulse Oximetry 97 03/15/18 11:10 Oxygen Delivery Oxygen Delivery Room Air Shortness of Breath/Dyspnea - MDM Narrative Medical decision making narrative: 77-year-old gentleman who presents today stating he has not feeling any better. He said a cough weakness and not feeling well for a couple weeks. He has been treated as an outpatient antibiotic steroids and breathing treatments by his primary care physician who sent up here because he continued to have coarse lung sounds wheezing and not feeling any better. Upper respiratory disease. 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 He does sound clinically like this in the right and he sat up patient therapy for this. I do think he needs to be admitted to the hospital. Consult was placed to Dr. Marquez for admission. Patient's gotten 2 L of IV fluids and IV Zosyn at this time. His first lactic was positive. This will be repeated at the 2 hour cash after the IV fluids. Dr Marquez accepted the patient at 1135 - Medical Records Medical records reviewed: Yes I reviewed the patient's medical records. - Lab Data Lab results reviewed: Yes I reviewed the patient's lab results. Result diagrams: 03/15/18 09:15 03/15/18 09:15 Lab Results 03/15/18 03/15/18 03/15/18 Range/Units 09:15 09:15 09:15 WBC 12.6 H (4.3-11.1) K/mcL RBC 5.19 (4.19-5.50) M/mcL Hgb 13.7 (12.9-16.9) g/dL Hct 42.8 (37.5-50.1) % MCV 82.5 L (83.0-100.0) fL MCH 26.4 L (28.0-33.3) pg MCHC 32.0 (31.6-35.5) g/dL RDW 16.2 H (11.5-14.5) % Plt Count 244 (140-400) K/mcL MPV 8.8 L (9.4-12.4) fL Immature Gran % 0.6 (0-4) % Seg Neutrophils % 91.9 % Lymphocytes % 5.6 % Monocytes % 1.8 % Eosinophils % 0.0 % Basophils % 0.1 % Neutrophils # 11.6 H (1.6-8.9) K/mcL Lymphocytes # 0.7 (0.6-4.6) K/mcL Monocytes # 0.2 (0.0-1.3) K/mcL Eosinophils # 0.0 (0.0-0.6) K/mcL Basophils # 0.0 (0.0-0.2) K/mcL Sodium 135 L (136-145) mEq/L Potassium 5.5 H (3.5-5.1) mEq/L Chloride 98 (98-107) mEq/L Carbon Dioxide 24 (23-29) mEq/L BUN 62 H (8-23) mg/dL Creatinine 3.12 H (0.70-1.30) mg/dL Est GFR ( Amer) 24 L (> 60) Est GFR (Non-Af Amer) 19 L (> 60) BUN/Creatinine Ratio 20 (6-26) Glucose 151 H (70-105) mg/dL Calculated Osmolality 301 H (280-300) Lactic Acid 3.4 H (0.5-2.2) mmol/L Calcium 9.5 (8.6-10.3) mg/dL Magnesium (1.6-2.6) mg/dL Troponin I (< 0.04) ng/mL B-Natriuretic Peptide (Less than 100) pg/mL 03/15/18 03/15/18 Range/Units 09:15 09:15 WBC (4.3-11.1) K/mcL RBC (4.19-5.50) M/mcL Hgb (12.9-16.9) g/dL Hct (37.5-50.1) % MCV (83.0-100.0) fL MCH (28.0-33.3) pg MCHC (31.6-35.5) g/dL RDW (11.5-14.5) % Plt Count (140-400) K/mcL MPV (9.4-12.4) fL Immature Gran % (0-4) % Seg Neutrophils % % Lymphocytes % % Monocytes % % Eosinophils % % Basophils % % Neutrophils # (1.6-8.9) K/mcL Lymphocytes # (0.6-4.6) K/mcL Monocytes # (0.0-1.3) K/mcL Eosinophils # (0.0-0.6) K/mcL Basophils # (0.0-0.2) K/mcL Sodium (136-145) mEq/L Potassium (3.5-5.1) mEq/L Chloride (98-107) mEq/L Carbon Dioxide (23-29) mEq/L BUN (8-23) mg/dL Creatinine (0.70-1.30) mg/dL Est GFR ( Amer) (> 60) Est GFR (Non-Af Amer) (> 60) BUN/Creatinine Ratio (6-26) Glucose (70-105) mg/dL Calculated Osmolality (280-300) Lactic Acid (0.5-2.2) mmol/L Calcium (8.6-10.3) mg/dL Magnesium 2.4 (1.6-2.6) mg/dL Troponin I < 0.03 (< 0.04) ng/mL B-Natriuretic Peptide 45 (Less than 100) pg/mL - Radiology Data Radiology results reviewed: Yes I reviewed the patient's radiology results. CT/CT chest wo con IMPRESSION: 1. 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 2. No intrathoracic or mediastinal mass identified. No acute intrathoracic abnormality. 3. Enlargement of the main pulmonary artery, correlate for history of pulmonary hypertension. 4. Advanced coronary arterial calcification. D/ / Rodney Wang / Rodney Wang Interpreting Provider: Rodney Wang EXAMINATION: SINGLE XRAY VIEW OF THE CHEST 03/15/2018 9:12 am COMPARISON: 04/10/2017 HISTORY: ORDERING SYSTEM PROVIDED HISTORY: dyspnea Affect FINDINGS: Normal heart size and pulmonary vasculature. Aortic calcifications. New masslike opacity in the right upper lung. Streaky opacities at the bilateral lung bases likely scarring. No pleural effusion or pneumothorax. XR/XR chest 1V portable IMPRESSION: New masslike opacity in the right upper lung is highly concerning for neoplasm. Pneumonia is a possibility but considered less likely. CT of the chest with contrast is advised for further evaluation. D/ / Samuel Menard / Samuel Menard Interpreting Provider: Samuel Menard - EKG Data EKG attestation: Yes I reviewed and interpreted this EKG. EKG results narrative: EKG interpreted by myself as sinus rhythm with rate [address] elevation
[2018-03-15] MEDS ORDERED: Albuterol 2.5 MG/3 ML NEBULIZER IH ONE (08:51)
[2018-03-15] MEDS ORDERED: methylPREDNISolone 125 MG/2 ML VIAL IVP ONE (08:51)
[2018-03-15] MEDS ORDERED: Ipratropium/Albuterol Neb 3 ML IH ONE (08:51)
[2018-03-15] MEDS ORDERED: 0.9 % Sodium Chloride 1,000 ML IVC ONE ×3 (08:52→14:02)
[2018-03-15] MEDS ORDERED: Isovue-370 500 ML INFUS..BTL IV ONE ×2 (09:22→14:02)
[2018-03-15 09:28] LABS: Basophils % 0.1 %; Hematocrit 42.8 % (37.5-50.1); Hemoglobin 13.7 g/dL (12.9-16.9); Immature Granulocytes % 0.6 % (0-4); Lymphocytes # 0.7 K/mcL (0.6-4.6); Lymphocytes % 5.6 %; Mean Corpuscular Hemoglobin 26.4 pg (28.0-33.3); Mean Corpuscular Volume 82.5 fL (83.0-100.0); Mean Platelet Volume 8.8 fL (9.4-12.4); Monocytes # 0.2 K/mcL (0.0-1.3); Monocytes % 1.8 %; Neutrophils # 11.6 K/mcL (1.6-8.9); Platelet Count 244 K/mcL (140-400); Red Blood Count 5.19 M/mcL (4.19-5.50); Red Cell Distribution Width 16.2 % (11.5-14.5); Segmented Neutrophils % 91.9 %
[2018-03-15 09:49] LABS: Troponin I < 0.03 ng/mL (< 0.04)
[2018-03-15 09:55] LABS: Calcium 9.5 mg/dL (8.6-10.3); Magnesium 2.4 mg/dL (1.6-2.6); Potassium 5.5 mEq/L (3.5-5.1)
[2018-03-15] MEDS ORDERED: Piperacillin/Tazobactam 3.375 GM in 0.9 % Sodium Chloride Mini Bag 100 ML IVPB ONE (11:09)
[2018-03-15 11:57] LABS: Bilirubin,Urine Negative (Negative); Blood,Urine Negative (Negative); Clarity,Urine Clear (Clear); Glucose,Urine (UA) Normal (Normal); Ketones,Urine Negative (Negative); Leukocyte Esterase,Urine Negative (Negative); Nitrite,Urine Negative (Negative); Protein,Urine 100 mg/dL (Neg-Trace); Urobilinogen,Urine Normal (Normal)
[2018-03-15 11:58] LABS: Color,Urine Light Yellow (Yellow)
[2018-03-15 12:05] LABS: Bacteria,Urine Moderate per hpf (None-Few); RBC,Urine 0-3 per hpf (0-3); Squamous Epithelial Cell,Urine Few per lpf (None-Few); WBC,Urine 0-3 per hpf (0-3); White Blood Cell Casts,Urine Few per lpf (None Seen)
[2018-03-15] MEDS ORDERED: Acetaminophen 325 MG TABLET PO PRN (14:02)
[2018-03-15] MEDS ORDERED: Vancomycin (wt based) 1,000 MG VIAL IVPB SCH (14:02)
[2018-03-15] MEDS ORDERED: 0.9 % Sodium Chloride 1,000 ML IVC SCH (14:02)
[2018-03-15] MEDS ORDERED: Bumetanide 1 MG TABLET PO SCH (14:02)
[2018-03-15] MEDS ORDERED: Naloxone 0.4 MG/ML INJ IVP PRN (14:02)
[2018-03-15] MEDS ORDERED: traMADol 50 MG TABLET PO PRN (14:02)
[2018-03-15 14:27] LABS: Basophils % 0.1 %; Hematocrit 39.3 % (37.5-50.1); Hemoglobin 12.8 g/dL (12.9-16.9); Immature Granulocytes % 0.4 % (0-4); Lymphocytes # 0.5 K/mcL (0.6-4.6); Lymphocytes % 3.9 %; Mean Corpuscular HGB Conc 32.6 g/dL (31.6-35.5); Mean Corpuscular Hemoglobin 27.1 pg (28.0-33.3); Mean Corpuscular Volume 83.1 fL (83.0-100.0); Mean Platelet Volume 8.9 fL (9.4-12.4); Monocytes # 0.2 K/mcL (0.0-1.3); Monocytes % 1.3 %; Neutrophils # 12.7 K/mcL (1.6-8.9); Platelet Count 220 K/mcL (140-400); Red Blood Count 4.73 M/mcL (4.19-5.50); Red Cell Distribution Width 16.1 % (11.5-14.5); Segmented Neutrophils % 94.3 %
[2018-03-15] MEDS: cloNIDine HCl 0.1 MG TABLET PO SCH ×2 (14:35→20:45)
--- NOTE | 2018-03-15 17:05 | Internal Med History&Physical ---
Date of Encounter: 03/15/18 Time of Encounter: 16:35 Assessment and Plan (1) Renal failure Current visit: Yes Status: Acute Possibly multifactorial etiology including infection and medication use. It appears he was on Bactrim as outpatient prior to admission. This will be discontinued. IV fluids will be given and renal indices will be monitored. Qualifiers: Renal failure chronicity: acute on chronic Acute renal failure type: unspecified Chronic kidney disease stage: stage 3 (moderate) Qualified Code(s): N17.9 - Acute kidney failure, unspecified; N18.3 - Chronic kidney disease, stage 3 (moderate) (2) Hyperkalemia Current visit: Yes Status: Acute Discontinue Bactrim and give gentle IV fluids. Monitor renal indices. (3) Anemia Current visit: Yes Status: Acute Will order anemia testing in a.m. Qualifiers: Anemia type: unspecified type Qualified Code(s): D64.9 - Anemia, unspecified (4) Hypertension Current visit: No Status: Chronic Continue Coreg and clonidine. Qualifiers: Hypertension type: essential hypertension Qualified Code(s): I10 - Essential (primary) hypertension (5) CKD (chronic kidney disease) stage 3, GFR 30-59 ml/min Current visit: No Status: Chronic As above (6) Acute exacerbation of chronic obstructive airways disease Current visit: No Status: Acute He will be given antibiotic and probiotic empirically for leukocytosis and possible bronchitis. Internal Medicine - H&P: HPI Chief complaint: Cough and dyspnea Admitted From: Emergency Dept Plans for Post Hospital Care: Home History of present illness: Mr. Fonseca is a 77 year old male who came to emergency room stating he had two- week history of cough with minimal productivity and worsening dyspnea. There was no chest pain associated. He reports being treated as outpatient with antibiotics without resolution of symptoms. He came to emergency room and was evaluated. No infiltrate was seen on chest CTA. He had acute on chronic renal insufficiency with hyperkalemia. He was admitted to [facility] floor for ongoing care needs. Respiratory history is significant for having smoked from age [age] up to 2 packs per day. He had PFTs approximately 2010 and was told he had mild COPD. He has home oxygen but states he uses it prn when he feels dyspneic. He does not use it while sleeping. Past Med Surg Social Fam HX - Past Medical History Medical history: cancer, COPD, coronary artery disease, CVA, hyperlipidemia, hypertension, myocardial infarction, osteoporosis, peripheral artery disease, renal disease, syncope, TIA, other Additional medical history: CVA x3. skin cancer Psychiatric history: anxiety - Past Surgical History Surgical History: angioplasty/stent, LE vascular intervention Additional surgical history: stents x3 - Social History Smoking Status: Former smoker Smokeless Tobacco Status: Yes (chewing tobacco) Alcohol use: none Drug use: none - Family History Father History Unknown: Yes Internal Medicine - H&P: Meds Carvedilol [Coreg] 25 mg PO BID 12/08/14 [History] LORazepam [Lorazepam] 2 mg PO HS 07/16/16 [History] Melatonin 10 mg PO HS 07/16/16 [History] Omeprazole 20 mg PO DAILY 07/16/16 [History] Tamsulosin [Flomax] 0.4 mg PO DAILY 07/16/16 [History] Ascorbic Acid [Vitamin C] 500 mg PO DAILY #30 tablet 08/10/16 [Rx] Ammonium Lactate [Amlactin] 1 appl TP BID #1 bottle 04/12/17 [Rx] Bumetanide 0.5 mg PO Q48H 365 Days tablet 04/12/17 [Rx] Doxycycline 100 mg PO BID #10 capsule 04/12/17 [Rx] Lactobacillus [Culturelle] 1 each PO BID #5 cap.sprink 04/12/17 [Rx] cloNIDine HCl [CloNIDine HCl] 0.1 mg PO Q8H #90 tablet 04/12/17 [Rx] levoFLOXacin [Levaquin] 500 mg PO DAILY #5 tablet 04/12/17 [Rx] predniSONE [PredniSONE] 10 mg PO BIDWM #10 tablet 04/12/17 [Rx] Amlodipine Besylate 03/15/18 [History] Sulfamethoxazole/Trimeth DS [Bactrim Ds] 03/15/18 [History] Allergy/AdvReac Type Severity Reaction Status Date / Time No Known Allergies Allergy Verified 04/10/17 15:06 All Systems PM: A 10-system review of systems was performed and is negative for pertinent findings except as documented above in the HPI. Review of systems: Review of systems from his April 2017 [facility] hospitalization were reviewed and revised as below Gen.: His weight has slightly increased since 04/11/2017 weight of 88.479 kg to a weight of 91.626 kg at present Cardiovascular: He has history of hypertension. He has known ASHD status post AL with 3 stents. His most recent stent and heart catheter were 2016 at [facility]. He denies known heart failure DVT or pulmonary embolus. He does not use antiplatelet agents at this time because of intracranial bleed in 2014. Respiratory: As per history of present illness GI: He denies disorders of his liver gallbladder or exocrine pancreas : He has BPH and takes Flomax. He has had multiple UTIs in the past. He has been told he has a kidney cyst. He has chronic kidney disease stage III. Neurologic: He claims he had intracranial bleed 2014 resulting in mild left leg weakness. He denies seizures. He states his memory has declined. Endocrine: He has hyperlipidemia but denies diabetes or thyroid disease Hematology/oncology: He has had skin cancers but denies internal malignancies or other blood disorders. He had anemia during his August 2016 hospitalization with workup showing iron 19, transferrin saturation 9%, transferrin 144, ferritin 576, B12 325, and folate 14.6. Psychiatric: He admits feeling depressed since his March 2016. Denies other mental health issues. Musk skeletal: He has minimal arthritis. He is uncertain if he has been diagnosed with gout. He denies other bone joint or muscle disorders. - Constitutional Vitals: Temp Pulse Resp BP Pulse Ox 97.7 F 73 18 150/80 96 03/15/18 16:13 03/15/18 16:13 03/15/18 16:13 03/15/18 13:28 03/15/18 16:13 Exam: Gen.: He is a well-developed well-nourished male resting comfortably in bed who appears in no acute distress HEENT: Head is atraumatic and normocephalic. Eyes: EOMI. There is no scleral icterus. Mouth: Mucosa is moist. Neck: Supple and nontender. There is no thyromegaly or adenopathy noted. Heart: Regular without murmurs gallops or ectopics Lungs: No wheezes or crackles are heard. Abdomen: Soft and nontender. No masses or guarding are noted. Extremities: There is 1+ edema of the dorsum of the feet and periarticular ankle area bilaterally. Dorsalis pedis and posterior tibial pulses are trace palpable. He has minimal DJD changes of his hands. Neurologic: Mental status: He is talkative and a good historian. He cannot re member a few details of his past history. Cranial nerves: Smile is symmetric. Forehead wrinkles bilaterally. Tongue protrudes midline. EOMI. Motor: There is no pronator drift. Cerebellar: Finger to nose is intact bilaterally. Skin: Warm and dry. 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 Internal Med - H&P Results - Labs CBC & Chem 7: 03/15/18 14:15 03/15/18 09:15 Labs: Short CBC 03/15/18 03/15/18 Range/Units 09:15 14:15 WBC 12.6 H 13.5 H (4.3-11.1) K/mcL Hgb 13.7 12.8 L (12.9-16.9) g/dL Hct 42.8 39.3 (37.5-50.1) % Plt Count 244 220 (140-400) K/mcL Neutrophils # 11.6 H 12.7 H (1.6-8.9) K/mcL BMP 03/15/18 09:15 Sodium 135 L Potassium 5.5 H Chloride 98 Carbon Dioxide 24 BUN 62 H Creatinine 3.12 H Glucose 151 H Calcium 9.5 Cardiac Enzymes 03/15/18 Range/Units 09:15 Troponin I < 0.03 (< 0.04) ng/mL Urine 03/15/18 Range/Units 11:45 Urine Color Light Yellow (Yellow) Urine Clarity Clear (Clear) Urine pH 5.0 (5.0-8.0) pH Units Ur Specific [place] 1.020 (1.010-1.025) Urine Protein 100 H (Neg-Trace) mg/dL Urine Glucose (UA) Normal (Normal) mg/dL - Impressions ITS Impressions Chest X-Ray 03/15/18 08:52 IMPRESSION: New masslike opacity in the right upper lung is highly concerning for neoplasm. Pneumonia is a possibility but considered less likely. CT of the chest with contrast is advised for further evaluation. D/ / Samuel Menard / Samuel Menard Interpreting Provider: Samuel Menard Chest CT 03/15/18 10:04 IMPRESSION: 1. 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 2. No intrathoracic or mediastinal mass identified. No acute intrathoracic abnormality. 3. Enlargement of the main pulmonary artery, correlate for history of pulmonary hypertension. 4. Advanced coronary arterial calcification. D/ / 03/15/2018 11:28:35 Rodney Wang / jessica Interpreting Provider: Rodney Wang
[2018-03-15] MEDS ORDERED: Azithromycin 500 MG in D5% in Water 250 ML IVPB ONE (17:20)
[2018-03-15] MEDS ORDERED: Melatonin 3 MG TABLET PO PRN (18:00)
[2018-03-15] MEDS: cefTRIAXone 1,000 MG in Water for inj. (sterile) 20 ML 10 ML IVP SCH (18:14)
[2018-03-15] MEDS: 0.9 % Sodium Chloride 1,000 ML IVC SCH (18:20)
[2018-03-15] MEDS: *HR* LORazepam 1 MG TABLET PO SCH (20:45)
[2018-03-15] MEDS: Lactobacillus 1 EACH CAP.SPRINK PO SCH (20:45)
[2018-03-16] MEDS: cloNIDine HCl 0.1 MG TABLET PO SCH ×3 (05:25→22:27)
[2018-03-16 07:14] LABS: Basophils % 0.1 %; Hematocrit 34.1 % (37.5-50.1); Hemoglobin 11.2 g/dL (12.9-16.9); Immature Granulocytes % 0.6 % (0-4); Lymphocytes # 0.6 K/mcL (0.6-4.6); Lymphocytes % 4.8 %; Mean Corpuscular HGB Conc 32.8 g/dL (31.6-35.5); Mean Corpuscular Hemoglobin 27.2 pg (28.0-33.3); Mean Corpuscular Volume 82.8 fL (83.0-100.0); Mean Platelet Volume 9.4 fL (9.4-12.4); Monocytes # 0.8 K/mcL (0.0-1.3); Monocytes % 6.3 %; Neutrophils # 11.1 K/mcL (1.6-8.9); Platelet Count 211 K/mcL (140-400); Red Blood Count 4.12 M/mcL (4.19-5.50); Red Cell Distribution Width 16.3 % (11.5-14.5); Segmented Neutrophils % 88.2 %
[2018-03-16 07:26] LABS: Albumin 3.4 g/dL (3.5-5.7); Albumin/Globulin Ratio 1.5 (1.1-2.2); Bilirubin,Total 0.2 mg/dL (0.3-1.0); Calcium 8.1 mg/dL (8.6-10.3); Globulin 2.3 g/dL (2.4-3.5); Potassium 4.9 mEq/L (3.5-5.1); Total Protein 5.7 g/dL (6.4-8.9)
[2018-03-16] MEDS: cefTRIAXone 1,000 MG in Water for inj. (sterile) 20 ML 10 ML IVP SCH (08:47)
[2018-03-16] MEDS: Lactobacillus 1 EACH CAP.SPRINK PO SCH ×2 (08:47→20:04)
--- NOTE | 2018-03-16 10:26 | Internal Med Progress Note ---
Date of Encounter: 03/16/18 Time of Encounter: 10:20 - Assessment and plan (1) Renal failure Current Visit: Yes Status: Acute Assessment and plan: March 16. Improved with BUN and creatinine decreased to 56 and 2.84 respectively. Continue present regimen. Recheck labs in a.m. Qualifiers: Renal failure chronicity: acute on chronic Acute renal failure type: unspecified Chronic kidney disease stage: stage 3 (moderate) Qualified Code(s): N17.9 - Acute kidney failure, unspecified; N18.3 - Chronic kidney disease, stage 3 (moderate) (2) Hyperkalemia Current Visit: Yes Status: Acute Assessment and plan: March 16. Resolved. Potassium level decreased to 4.9 today. Continue present regimen. (3) Anemia Current Visit: Yes Status: Acute Assessment and plan: March 16. Anemia testing pending. Qualifiers: Anemia type: unspecified type Qualified Code(s): D64.9 - Anemia, unspecified (4) Hypertension Current Visit: No Status: Chronic Assessment and plan: March 16. Blood pressures stable. Continue clonidine and Coreg. Qualifiers: Hypertension type: essential hypertension Qualified Code(s): I10 - Essenti al (primary) hypertension (5) CKD (chronic kidney disease) stage 3, GFR 30-59 ml/min Current Visit: No Status: Chronic Assessment and plan: March 16. Renal indices improved as per above. Continue present regimen. (6) Acute exacerbation of chronic obstructive airways disease Current Visit: No Status: Acute Assessment and plan: March 16. Continue IV Rocephin and Zithromax. - Subjective Interval history: March 16. He has no new complaints except he did not sleep well. - Constitutional Vitals: Temp Pulse Resp BP Pulse Ox 97.5 F L 72 18 144/86 96 03/16/18 07:27 03/16/18 07:27 03/16/18 07:27 03/16/18 07:27 03/16/18 07:27 Exam: He is resting comfortably in bed and appears in no acute distress. His affect is cheerful. I reviewed his medications. I discussed pertinent lab results with him. Internal Medicine: Result - Labs CBC & Chem 7: 03/16/18 07:05 03/16/18 07:05 Labs: Short CBC 03/15/18 03/16/18 Range/Units 14:15 07:05 WBC 13.5 H 12.6 H (4.3-11.1) K/mcL Hgb 12.8 L 11.2 L D (12.9-16.9) g/dL Hct 39.3 34.1 L (37.5-50.1) % Plt Count 220 211 (140-400) K/mcL Neutrophils # 12.7 H 11.1 H (1.6-8.9) K/mcL BMP 03/16/18 07:05 Sodium 135 L Potassium 4.9 Chloride 104 Carbon Dioxide 23 BUN 56 H Creatinine 2.84 H Glucose 138 H Calcium 8.1 L Liver Function 03/16/18 Range/Units 07:05 Total Bilirubin 0.2 L (0.3-1.0) mg/dL AST 13 (13-39) Units/L ALT 12 (7-52) Units/L Alkaline Phosphatase 27 L (34-104) Units/L Albumin 3.4 L (3.5-5.7) g/dL Urine 03/15/18 Range/Units 11:45 Urine Color Light Yellow (Yellow) Urine Clarity Clear (Clear) Urine pH 5.0 (5.0-8.0) pH Units Ur Specific [place] 1.020 (1.010-1.025) Urine Protein 100 H (Neg-Trace) mg/dL Urine Glucose (UA) Normal (Normal) mg/dL - Impressions Impressions Chest CT 03/15/18 10:04 IMPRESSION: 1. 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 2. No intrathoracic or mediastinal mass identified. No acute intrathoracic abnormality. 3. Enlargement of the main pulmonary artery, correlate for history of pulmonary hypertension. 4. Advanced coronary arterial calcification. D/ / 03/15/2018 11:28:35 Rodney Wang / jessica Interpreting Provider: Rodney Wang Consult Discharge Plan - Plan Referrals: Jocelyne Santiago, FOREIGN LANGUAGE PROFESSOR [Primary Care Provider] - 1 week
[2018-03-16 11:36] LABS: % Iron Saturation 27 % (20-55); Iron 86 mcg/dL (65-175); Transferrin 226 mg/dL (203-362)
[2018-03-16 11:55] LABS: Ferritin 50 ng/mL (20-250)
[2018-03-16 12:00] LABS: Folate 4.7 ng/mL (3.0-16.0)
[2018-03-16] MEDS: 0.9 % Sodium Chloride 1,000 ML IVC SCH (12:44)
[2018-03-16] MEDS ORDERED: Aminoglycoside Consult 1 EACH MC ONE (17:00)
--- NOTE | 2018-03-16 17:00 | Electrocardiograph Report ---
[address] [place], [place] [address] Test Date: 2018-03-15 Pat Name: [facility] Department: [id number] Room: [facility] Gender: M Domestic Violence Counselor: [id number] : 1940 Requested By: Kasandra De Leon Order Number: [id number] Reading MD: Maurice Huitron Measurements Intervals [place] Rate: 70 P: 40 HI: 159 QRS: 5 QRSD: 83 T: 43 QT: 357 QTc: 377 Interpretive Statements SINUS RHYTHM Electronically Signed On 03-16-2018 16:59:12 EST by Maurice Huitron
[2018-03-16] MEDS: *HR* LORazepam 1 MG TABLET PO SCH (20:05)
[2018-03-16] MEDS ORDERED: Melatonin 3 MG TABLET PO SCH (21:00)
[2018-03-17] MEDS: 0.9 % Sodium Chloride 1,000 ML IVC SCH (03:47)
[2018-03-17] MEDS ORDERED: *HR* Enoxaparin 30 MG/0.3 ML SYRINGE SQ SCH (06:00)
[2018-03-17] MEDS: cloNIDine HCl 0.1 MG TABLET PO SCH (06:41)
[2018-03-17 06:46] VITALS: BP 134/98
[2018-03-17 07:06] LABS: Basophils % 0.1 %; Eosinophils # 0.1 K/mcL (0.0-0.6); Eosinophils % 1.2 %; Hematocrit 34.2 % (37.5-50.1); Hemoglobin 10.7 g/dL (12.9-16.9); Immature Granulocytes % 0.4 % (0-4); Lymphocytes # 0.9 K/mcL (0.6-4.6); Lymphocytes % 9.2 %; Mean Corpuscular HGB Conc 31.3 g/dL (31.6-35.5); Mean Corpuscular Hemoglobin 26.8 pg (28.0-33.3); Mean Corpuscular Volume 85.7 fL (83.0-100.0); Mean Platelet Volume 9.3 fL (9.4-12.4); Monocytes # 1.1 K/mcL (0.0-1.3); Monocytes % 11.2 %; Neutrophils # 7.5 K/mcL (1.6-8.9); Platelet Count 193 K/mcL (140-400); Red Blood Count 3.99 M/mcL (4.19-5.50); Red Cell Distribution Width 16.6 % (11.5-14.5); Segmented Neutrophils % 77.9 %
[2018-03-17 07:26] LABS: Calcium 7.7 mg/dL (8.6-10.3); Potassium 4.5 mEq/L (3.5-5.1)
[2018-03-17] MEDS ORDERED: Azithromycin 500 MG in D5% in Water 250 ML IVPB SCH (08:00)
[2018-03-17] MEDS: Lactobacillus 1 EACH CAP.SPRINK PO SCH (08:29)
[2018-03-17] MEDS: cefTRIAXone 1,000 MG in Water for inj. (sterile) 20 ML 10 ML IVP SCH (08:30)
--- NOTE | 2018-03-17 08:33 | Discharge Summary ---
Orders not resulted at time of discharge: Pending orders 03/15/18 09:35 Culture,Blood [BC] Stat Date of Encounter: 03/17/18 Time of Encounter: 08:24 - Discharge Diagnosis (1) Renal failure Priority: Primary Status: Acute Qualifiers: Renal failure chronicity: acute on chronic Acute renal failure type: unspecified Chronic kidney disease stage: stage 3 (moderate) Qualified Code(s): N17.9 - Acute kidney failure, unspecified; N18.3 - Chronic kidney disease, stage 3 (moderate) (2) Hyperkalemia Priority: Secondary Status: Resolved (3) Anemia Priority: Secondary Status: Acute Qualifiers: Anemia type: unspecified type Qualified Code(s): D64.9 - Anemia, unspecified (4) Hypertension Priority: Secondary Status: Chronic Qualifiers: Hypertension type: essential hypertension Qualified Code(s): I10 - Essential (primary) hypertension (5) CKD (chronic kidney disease) stage 3, GFR 30-59 ml/min Priority: Secondary Status: Chronic (6) Acute exacerbation of chronic obstructive airways disease Priority: Secondary Status: Acute Hospital course: Mr. Fonseca is a 77 year old male who came to emergency room stating he had two- week history of cough with minimal productivity and worsening dyspnea. There was no chest pain associated. He reports being treated as outpatient with antibiotics without resolution of symptoms. He came to emergency room and was evaluated. No infiltrate was seen on chest CTA. He had acute on chronic renal insufficiency with hyperkalemia. He was admitted to [facility] floor for ongoing care needs. Initial orders were written by the emergency room physician. I saw him on March 15 and performed a history and physical. Bactrim was discontinued and Bumex was held. He was given IV fluids. Azotemia improved with BUN and creatinine decreasing to 48 and 2.45 respectively by day of discharge with estimated GFR 26. He will remain off Bactrim at discharge. He will restart Bumex at dose of 0.5 mg every 48 hours. His PCP can monitor labs. He was given Rocephin and Zithromax empirically and WBC normalized to 9.7 by day of discharge with resolution of left shift. He remained afebrile throughout his hospital stay. Hypokalemia resolved with potassium level 4.5 on day of discharge. His PCP can monitor labs. Anemia testing showed iron 86, transferrin saturation 27%, transferrin 226, ferritin 50, B12 263, and folate 4.7. Anemia is likely due primarily to chronic kidney disease. On March 17 he felt stable for discharge home. He will follow with his PCP Jocelyne Santiago CNP within 1 week. - Time Spent with Patient Total time spent providing and/or coordinating discharge services: - Discharge Medications Prescriptions: Cefuroxime PO [Ceftin] 500 mg PO Q12HR #6 tablet Azithromycin [Zithromax] 250 mg PO DAILY #3 tablet Lactobacillus [Culturelle] 1 each PO BID #6 cap.sprink predniSONE [PredniSONE] 10 mg PO BIDWM #6 tablet Home Medications: Carvedilol [Coreg] 25 mg PO BID 12/08/14 [History] LORazepam [Lorazepam] 2 mg PO HS 07/16/16 [History] Melatonin 10 mg PO HS 07/16/16 [History] Omeprazole 20 mg PO DAILY 07/16/16 [History] Tamsulosin [Flomax] 0.4 mg PO DAILY 07/16/16 [History] Ascorbic Acid [Vitamin C] 500 mg PO DAILY #30 tablet 08/10/16 [Rx] Ammonium Lactate [Amlactin] 1 appl TP BID #1 bottle 04/12/17 [Rx] Bumetanide 0.5 mg PO Q48H 365 Days tablet 04/12/17 [Rx] Lactobacillus [Culturelle] 1 each PO BID #5 cap.sprink 04/12/17 [Rx] cloNIDine HCl [CloNIDine HCl] 0.1 mg PO Q8H #90 tablet 04/12/17 [Rx] Amlodipine Besylate 03/15/18 [History] Azithromycin [Zithromax] 250 mg PO DAILY #3 tablet 03/17/18 [Rx] Cefuroxime PO [Ceftin] 500 mg PO Q12HR #6 tablet 03/17/18 [Rx] Lactobacillus [Culturelle] 1 each PO BID #6 cap.sprink 03/17/18 [Rx] predniSONE [PredniSONE] 10 mg PO BIDWM #6 tablet 03/17/18 [Rx] Allergies/Adverse Reactions: Allergy/AdvReac Type Severity Reaction Status Date / Time No Known Allergies Allergy Verified 04/10/17 15:06 Date of admission: 03/16/18 10:30 Primary care physician: Jocelyne Santiago CNP - Constitutional Vitals: Temp Pulse Resp BP Pulse Ox 97.8 F 80 18 134/98 92 03/17/18 06:45 03/17/18 06:45 03/17/18 06:45 03/17/18 06:45 03/17/18 06:45 - Patient Status Disposition: Home, Self-Care Condition: Fair - Discharge Instructions Follow Up With: Jocelyne Santiago, MARIO [Primary Care Provider] - 1 week - Diet and Activity Activity: resume usual activities as tolerated, wear oxygen at all times Diet: advance to your usual diet
== END 2018-03-17 11:34 | disposition home or self-care (01) | DRG 683 ==
LOC: EMEROOPIK 08:46 → INPPIK 08:46
PROVIDERS: ADMIT Internal Medicine; ATTEND Internal Medicine

== ENCOUNTER 2019-03-23 15:35 | Inpatient (IN) ==
[2019-03-23] MEDS ORDERED: Azithromycin 500 MG in 0.9 % Sodium Chloride 250 ML IVPB ONE (15:41)
[2019-03-23] MEDS ORDERED: Ipratropium/Albuterol Neb 3 ML IH ONE (15:41)
[2019-03-23] MEDS ORDERED: methylPREDNISolone 125 MG/2 ML VIAL IVP ONE (15:41)
[2019-03-23] MEDS ORDERED: cefTRIAXone 2,000 MG in Water for inj. (sterile) 10 ML IVP ONE (15:41)
[2019-03-23] MEDS ORDERED: 0.9 % Sodium Chloride 500 ML IVC ONE (15:43)
[2019-03-23] MEDS ORDERED: 0.9 % Sodium Chloride 1,000 ML IVC SCH (15:45)
[2019-03-23 16:19] LABS: Basophils % 0.3 %; Eosinophils # 0.3 K/mcL (0.0-0.6); Eosinophils % 2.2 %; Hematocrit 34.7 % (37.5-50.1); Hemoglobin 10.7 g/dL (12.9-16.9); Immature Granulocytes % 0.5 % (0-4); Lymphocytes % 6.6 %; Mean Corpuscular HGB Conc 30.8 g/dL (31.6-35.5); Mean Corpuscular Hemoglobin 26.3 pg (28.0-33.3); Mean Corpuscular Volume 85.3 fL (83.0-100.0); Mean Platelet Volume 8.6 fL (9.4-12.4); Monocytes # 1.1 K/mcL (0.0-1.3); Monocytes % 7.3 %; Neutrophils # 12.4 K/mcL (1.6-8.9); Platelet Count 227 K/mcL (140-400); Red Blood Count 4.07 M/mcL (4.19-5.50); Segmented Neutrophils % 83.1 %; White Blood Count 14.9 K/mcL (4.3-11.1)
[2019-03-23 16:27] LABS: INR 1.1
[2019-03-23 16:33] LABS: ABG Base Excess 5 mEq/L (-2 to 3); ABG HCO3 31 mEq/L (21-27); ABG Oxygen Saturation 90 % (95-98); ABG PCO2 50 mmHg (35-45); ABG PO2 60 mmHg (85-104); ABG TCO2 33 mEq/L (20-26)
[2019-03-23 16:35] LABS: Calcium 8.7 mg/dL (8.6-10.3); Potassium 4.3 mEq/L (3.5-5.1)
[2019-03-23 16:37] LABS: Troponin I 0.03 ng/mL (< 0.04)
[2019-03-23] MEDS ORDERED: Naloxone 0.4 MG/ML INJ IVP PRN (17:24)
[2019-03-23] MEDS ORDERED: Mag Hydrox/Al Hydrox/Simeth 30 ML UDC PO PRN (17:24)
[2019-03-23] MEDS ORDERED: Ondansetron 4 MG/2 ML VIAL IVP PRN (17:24)
[2019-03-23] MEDS ORDERED: MOM Conc 10 ML UD.LIQ PO PRN (17:24)
[2019-03-23] MEDS ORDERED: Albuterol 2.5 MG/3 ML NEBULIZER IH ONE (17:45)
[2019-03-23] MEDS: Furosemide 40 MG TABLET PO SCH (21:06)
[2019-03-23] MEDS: Lactobacillus 1 EACH CAP.SPRINK PO SCH (21:07)
[2019-03-23] MEDS: Melatonin 3 MG TABLET PO SCH (21:07)
[2019-03-23] MEDS: *HR* LORazepam 1 MG TABLET PO SCH (21:07)
[2019-03-23] MEDS: 0.9 % Sodium Chloride 1,000 ML IVC SCH (21:10)
[2019-03-23] MEDS: Ipratropium/Albuterol Neb 3 ML IH SCH (22:08)
[2019-03-24] MEDS: 0.9 % Sodium Chloride 1,000 ML IVC SCH ×2 (01:01→13:03)
[2019-03-24] MEDS: Ipratropium/Albuterol Neb 3 ML IH SCH ×2 (04:19→10:10)
[2019-03-24] MEDS ORDERED: predniSONE 10 MG TABLET PO SCH (08:00)
[2019-03-24] MEDS ORDERED: amLODIPine 5 MG TABLET PO SCH (09:00)
[2019-03-24] MEDS: Lactobacillus 1 EACH CAP.SPRINK PO SCH ×2 (09:03→20:20)
[2019-03-24] MEDS: Furosemide 40 MG TABLET PO SCH (09:03)
[2019-03-24] MEDS: Doxycycline 100 MG in 0.9 % Sodium Chloride Mini Bag 100 ML IVPB SCH (13:09)
[2019-03-24] MEDS: Budesonide/Formoterol 160/4.5 1 PUFF INH IH SCH ×2 (13:22→20:27)
[2019-03-24] MEDS: levoFLOXacin 750 MG/150 ML 750 MG/150 ML BAG IVPB SCH (15:18)
[2019-03-24] MEDS ORDERED: Azithromycin 500 MG in 0.9 % Sodium Chloride 250 ML IVPB SCH (16:00)
[2019-03-24] MEDS ORDERED: cefTRIAXone 2,000 MG in Water for inj. (sterile) 20 ML IVPB SCH (16:00)
[2019-03-24] MEDS: predniSONE 10 MG TABLET PO SCH (17:18)
[2019-03-24] MEDS: Bumetanide 1 MG TABLET PO SCH (17:18)
[2019-03-24] MEDS: *HR* LORazepam 1 MG TABLET PO SCH (20:20)
[2019-03-24] MEDS: Melatonin 3 MG TABLET PO SCH (20:20)
[2019-03-24] MEDS: Albuterol 2.5 MG/3 ML NEBULIZER IH PRN (20:27)
[2019-03-25] MEDS: Doxycycline 100 MG in 0.9 % Sodium Chloride Mini Bag 100 ML IVPB SCH ×3 (00:28→23:27)
[2019-03-25] MEDS: Ascorbic Acid 500 MG TABLET PO SCH (06:19)
[2019-03-25 07:07] LABS: Basophils % 0.1 %; Hematocrit 32.2 % (37.5-50.1); Hemoglobin 10.1 g/dL (12.9-16.9); Immature Granulocytes % 0.5 % (0-4); Lymphocytes # 0.5 K/mcL (0.6-4.6); Lymphocytes % 3.8 %; Mean Corpuscular HGB Conc 31.4 g/dL (31.6-35.5); Mean Corpuscular Volume 82.8 fL (83.0-100.0); Mean Platelet Volume 9.3 fL (9.4-12.4); Monocytes # 0.7 K/mcL (0.0-1.3); Monocytes % 5.2 %; Neutrophils # 11.7 K/mcL (1.6-8.9); Platelet Count 258 K/mcL (140-400); Red Blood Count 3.89 M/mcL (4.19-5.50); Red Cell Distribution Width 16.1 % (11.5-14.5); Segmented Neutrophils % 90.4 %; White Blood Count 12.9 K/mcL (4.3-11.1)
[2019-03-25] MEDS: Bumetanide 1 MG TABLET PO SCH ×2 (09:27→16:31)
[2019-03-25] MEDS: predniSONE 10 MG TABLET PO SCH ×2 (09:27→16:32)
[2019-03-25] MEDS: Lactobacillus 1 EACH CAP.SPRINK PO SCH ×2 (09:27→20:13)
[2019-03-25] MEDS: amLODIPine 5 MG TABLET PO SCH (09:27)
[2019-03-25] MEDS: Budesonide/Formoterol 160/4.5 1 PUFF INH IH SCH ×2 (09:29→22:18)
[2019-03-25] MEDS: Tiotropium 18 MCG inhalation IH SCH (09:29)
[2019-03-25] MEDS: *HR* LORazepam 1 MG TABLET PO SCH (20:12)
[2019-03-25] MEDS: Melatonin 3 MG TABLET PO SCH (20:12)
[2019-03-26 06:13] LABS: Basophils % 0.1 %; Eosinophils % 0.1 %; Hematocrit 33.5 % (37.5-50.1); Hemoglobin 10.4 g/dL (12.9-16.9); Immature Granulocytes % 0.7 % (0-4); Lymphocytes # 0.7 K/mcL (0.6-4.6); Lymphocytes % 7.2 %; Mean Corpuscular Hemoglobin 25.9 pg (28.0-33.3); Mean Corpuscular Volume 83.3 fL (83.0-100.0); Mean Platelet Volume 9.1 fL (9.4-12.4); Monocytes % 9.9 %; Platelet Count 274 K/mcL (140-400); Red Blood Count 4.02 M/mcL (4.19-5.50); White Blood Count 9.7 K/mcL (4.3-11.1)
[2019-03-26] MEDS: *HR* Enoxaparin 40 MG/0.4 ML SYRINGE SQ SCH (06:13)
[2019-03-26] MEDS: Ascorbic Acid 500 MG TABLET PO SCH (06:14)
[2019-03-26 06:54] LABS: Calcium 8.4 mg/dL (8.6-10.3); Potassium 3.3 mEq/L (3.5-5.1)
[2019-03-26] MEDS: predniSONE 10 MG TABLET PO SCH ×2 (09:26→16:57)
[2019-03-26] MEDS: Lactobacillus 1 EACH CAP.SPRINK PO SCH ×2 (09:27→19:26)
[2019-03-26] MEDS: amLODIPine 5 MG TABLET PO SCH (09:27)
[2019-03-26] MEDS: Bumetanide 1 MG TABLET PO SCH (09:27)
[2019-03-26] MEDS: Budesonide/Formoterol 160/4.5 1 PUFF INH IH SCH ×2 (09:42→22:15)
[2019-03-26] MEDS: Tiotropium 18 MCG inhalation IH SCH (09:42)
[2019-03-26] MEDS: Doxycycline 100 MG in 0.9 % Sodium Chloride Mini Bag 100 ML IVPB SCH (11:30)
[2019-03-26] MEDS: levoFLOXacin 750 MG/150 ML 750 MG/150 ML BAG IVPB SCH (12:44)
[2019-03-26] MEDS: Melatonin 3 MG TABLET PO SCH (19:26)
[2019-03-26] MEDS: *HR* LORazepam 1 MG TABLET PO SCH (19:26)
[2019-03-26] MEDS: Doxycycline 100 MG CAPSULE PO SCH (21:43)
[2019-03-26] MEDS: Albuterol 2.5 MG/3 ML NEBULIZER IH PRN (22:15)
[2019-03-27] MEDS: *HR* Enoxaparin 40 MG/0.4 ML SYRINGE SQ SCH (05:22)
[2019-03-27] MEDS: Ascorbic Acid 500 MG TABLET PO SCH (05:22)
[2019-03-27] MEDS: Doxycycline 100 MG CAPSULE PO SCH ×2 (08:27→20:43)
[2019-03-27] MEDS: amLODIPine 5 MG TABLET PO SCH (08:27)
[2019-03-27] MEDS: predniSONE 10 MG TABLET PO SCH ×2 (08:27→16:51)
[2019-03-27] MEDS ORDERED: Bumetanide 1 MG TABLET PO SCH (09:00)
[2019-03-27] MEDS: Tiotropium 18 MCG inhalation IH SCH (09:08)
[2019-03-27] MEDS: Budesonide/Formoterol 160/4.5 1 PUFF INH IH SCH ×2 (09:08→22:48)
[2019-03-27] MEDS: Albuterol 2.5 MG/3 ML NEBULIZER IH PRN (17:49)
[2019-03-27 18:56] VITALS: BP 152/73
[2019-03-27] MEDS: *HR* LORazepam 1 MG TABLET PO SCH (20:42)
[2019-03-27] MEDS: Melatonin 3 MG TABLET PO SCH (20:43)
[2019-03-28] MEDS ORDERED: levoFLOXacin 750 MG TABLET PO SCH (09:00)
== END 2019-03-28 02:25 | disposition other institution (70) | DRG 190 ==
LOC: EMEROOPIK 15:35 → INPPIK 15:35
PROVIDERS: ADMIT Internal Medicine; ATTEND Internal Medicine

== ENCOUNTER 2019-03-27 13:00 | Inpatient (IN) ==
[2019-03-28] MEDS: Melatonin 3 MG TABLET PO SCH ×2 (05:53→20:08)
[2019-03-28] MEDS: *HR* Enoxaparin 40 MG/0.4 ML SYRINGE SQ SCH (05:56)
[2019-03-28] MEDS: Ascorbic Acid 500 MG TABLET PO SCH (05:56)
[2019-03-28 06:15] LABS: Basophils % 0.2 %; Eosinophils # 0.1 K/mcL (0.0-0.6); Eosinophils % 0.6 %; Hematocrit 33.1 % (37.5-50.1); Hemoglobin 10.3 g/dL (12.9-16.9); Immature Granulocytes % 1.2 % (0-4); Lymphocytes # 0.8 K/mcL (0.6-4.6); Lymphocytes % 7.4 %; Mean Corpuscular HGB Conc 31.1 g/dL (31.6-35.5); Mean Corpuscular Hemoglobin 26.3 pg (28.0-33.3); Mean Corpuscular Volume 84.4 fL (83.0-100.0); Mean Platelet Volume 9.1 fL (9.4-12.4); Monocytes % 8.3 %; Neutrophils # 9.4 K/mcL (1.6-8.9); Platelet Count 277 K/mcL (140-400); Red Blood Count 3.92 M/mcL (4.19-5.50); Red Cell Distribution Width 16.2 % (11.5-14.5); Segmented Neutrophils % 82.3 %; White Blood Count 11.4 K/mcL (4.3-11.1)
[2019-03-28] MEDS: Bumetanide 1 MG TABLET PO SCH (07:43)
[2019-03-28] MEDS: Doxycycline 100 MG CAPSULE PO SCH ×2 (07:43→20:08)
[2019-03-28] MEDS: Lactobacillus 1 EACH CAP.SPRINK PO SCH ×2 (07:44→20:08)
[2019-03-28] MEDS: levoFLOXacin 500 MG TABLET PO SCH (07:44)
[2019-03-28] MEDS: amLODIPine 5 MG TABLET PO SCH (07:44)
[2019-03-28] MEDS: carvediloL 25 MG TABLET PO SCH ×2 (07:44→17:03)
[2019-03-28] MEDS: Cholecalciferol (D-3) 1,000 UNIT (25MCG) TABLET PO SCH (07:44)
[2019-03-28 07:48] LABS: Calcium 8.3 mg/dL (8.6-10.3); Potassium 4.3 mEq/L (3.5-5.1)
[2019-03-28] MEDS ORDERED: MOM Conc 10 ML UD.LIQ PO PRN (09:00)
[2019-03-28] MEDS ORDERED: ASCORBIC ACID 500 MG PO SCH (09:00)
[2019-03-28] MEDS: Budesonide/Formoterol 160/4.5 1 PUFF INH IH SCH ×2 (10:48→22:19)
[2019-03-28] MEDS: *HR* LORazepam 1 MG TABLET PO SCH (20:09)
[2019-03-28] MEDS: Acetylcysteine 10% 10 ML VIAL IH SCH (21:33)
[2019-03-28] MEDS: Albuterol 2.5 MG/3 ML NEBULIZER IH PRN (21:33)
[2019-03-29] MEDS: *HR* Enoxaparin 40 MG/0.4 ML SYRINGE SQ SCH (05:34)
[2019-03-29] MEDS: Ascorbic Acid 500 MG TABLET PO SCH (05:34)
[2019-03-29 07:00] LABS: Basophils % 0.2 %; Eosinophils # 0.3 K/mcL (0.0-0.6); Eosinophils % 2.6 %; Hematocrit 38.3 % (37.5-50.1); Hemoglobin 11.6 g/dL (12.9-16.9); Lymphocytes # 0.7 K/mcL (0.6-4.6); Lymphocytes % 5.6 %; Mean Corpuscular HGB Conc 30.3 g/dL (31.6-35.5); Mean Corpuscular Hemoglobin 25.9 pg (28.0-33.3); Mean Corpuscular Volume 85.5 fL (83.0-100.0); Mean Platelet Volume 9.4 fL (9.4-12.4); Monocytes % 7.9 %; Neutrophils # 10.8 K/mcL (1.6-8.9); Platelet Count 304 K/mcL (140-400); Red Blood Count 4.48 M/mcL (4.19-5.50); Red Cell Distribution Width 16.4 % (11.5-14.5); Segmented Neutrophils % 81.7 %; White Blood Count 13.2 K/mcL (4.3-11.1)
[2019-03-29 07:37] LABS: Calcium 8.9 mg/dL (8.6-10.3); Potassium 4.4 mEq/L (3.5-5.1)
[2019-03-29] MEDS: Doxycycline 100 MG CAPSULE PO SCH ×2 (08:30→20:46)
[2019-03-29] MEDS: Lactobacillus 1 EACH CAP.SPRINK PO SCH ×2 (08:30→20:46)
[2019-03-29] MEDS: Bumetanide 1 MG TABLET PO SCH (08:30)
[2019-03-29] MEDS: Cholecalciferol (D-3) 1,000 UNIT (25MCG) TABLET PO SCH (08:30)
[2019-03-29] MEDS: amLODIPine 5 MG TABLET PO SCH (08:30)
[2019-03-29] MEDS: Cyanocobalamin (B-12) 1,000 MCG TABLET PO SCH (08:31)
[2019-03-29] MEDS: carvediloL 25 MG TABLET PO SCH ×2 (08:31→17:58)
[2019-03-29] MEDS: Albuterol 2.5 MG/3 ML NEBULIZER IH PRN ×2 (10:08→22:15)
[2019-03-29] MEDS: Budesonide/Formoterol 160/4.5 1 PUFF INH IH SCH ×2 (10:09→22:15)
[2019-03-29] MEDS: Acetylcysteine 10% 10 ML VIAL IH SCH ×2 (10:12→22:15)
[2019-03-29] MEDS: Melatonin 3 MG TABLET PO SCH (20:46)
[2019-03-29] MEDS: *HR* LORazepam 1 MG TABLET PO SCH (20:46)
[2019-03-29 21:54] LABS: Adenovirus Not Detected (Not Detect); Bordetella Pertussis Not Detected (Not Detect); Chlamydophila pneumoniae Not Detected (Not Detect); Coronavirus 229E Not Detected (Not Detect); Coronavirus HKU1 Not Detected (Not Detect); Coronavirus NL63 Not Detected (Not Detect); Coronavirus OC43 Not Detected (Not Detect); Human Metapneumovirus Not Detected (Not Detect); Human Rhinovirus/Enterovirus Not Detected (Not Detect); Influenza A Subtype 2009 H1 Not Detected (Not Detect); Influenza A Untypeable Not Detected (Not Detect); Influenza B Not Detected (Not Detect); Mycoplasma pneumoniae Not Detected (Not Detect); Parainfluenza Virus 1 Not Detected (Not Detect); Parainfluenza Virus 2 Not Detected (Not Detect); Parainfluenza Virus 3 Not Detected (Not Detect); Parainfluenza Virus 4 Not Detected (Not Detect); Respiratory Syncytial Virus Not Detected (Not Detect)
[2019-03-30 05:23] LABS: Basophils % 0.2 %; Eosinophils # 0.3 K/mcL (0.0-0.6); Eosinophils % 2.7 %; Hematocrit 32.5 % (37.5-50.1); Immature Granulocytes % 1.3 % (0-4); Lymphocytes # 0.8 K/mcL (0.6-4.6); Lymphocytes % 7.2 %; Mean Corpuscular HGB Conc 30.8 g/dL (31.6-35.5); Mean Corpuscular Volume 84.4 fL (83.0-100.0); Mean Platelet Volume 8.8 fL (9.4-12.4); Monocytes # 0.9 K/mcL (0.0-1.3); Neutrophils # 9.2 K/mcL (1.6-8.9); Platelet Count 223 K/mcL (140-400); Red Blood Count 3.85 M/mcL (4.19-5.50); Red Cell Distribution Width 16.6 % (11.5-14.5); Segmented Neutrophils % 80.6 %; White Blood Count 11.4 K/mcL (4.3-11.1)
[2019-03-30] MEDS: Ascorbic Acid 500 MG TABLET PO SCH (06:21)
[2019-03-30] MEDS: *HR* Enoxaparin 40 MG/0.4 ML SYRINGE SQ SCH (06:21)
[2019-03-30] MEDS: Acetylcysteine 10% 10 ML VIAL IH SCH ×2 (08:56→22:13)
[2019-03-30] MEDS: Budesonide/Formoterol 160/4.5 1 PUFF INH IH SCH ×2 (08:56→22:14)
[2019-03-30] MEDS: Albuterol 2.5 MG/3 ML NEBULIZER IH PRN ×2 (08:56→22:14)
[2019-03-30] MEDS: Cholecalciferol (D-3) 1,000 UNIT (25MCG) TABLET PO SCH (09:22)
[2019-03-30] MEDS: carvediloL 25 MG TABLET PO SCH ×2 (09:22→17:01)
[2019-03-30] MEDS: Cyanocobalamin (B-12) 1,000 MCG TABLET PO SCH (09:22)
[2019-03-30] MEDS: Lactobacillus 1 EACH CAP.SPRINK PO SCH (09:22)
[2019-03-30] MEDS: Doxycycline 100 MG CAPSULE PO SCH (09:22)
[2019-03-30] MEDS: Bumetanide 1 MG TABLET PO SCH (09:22)
[2019-03-30] MEDS: levoFLOXacin 500 MG TABLET PO SCH (09:22)
[2019-03-30] MEDS: amLODIPine 5 MG TABLET PO SCH (09:23)
[2019-03-30] MEDS: Melatonin 3 MG TABLET PO SCH (19:48)
[2019-03-30] MEDS: *HR* LORazepam 1 MG TABLET PO SCH (19:48)
[2019-03-31] MEDS: Ascorbic Acid 500 MG TABLET PO SCH (06:43)
[2019-03-31] MEDS: *HR* Enoxaparin 40 MG/0.4 ML SYRINGE SQ SCH (06:43)
[2019-03-31] MEDS: Albuterol 2.5 MG/3 ML NEBULIZER IH PRN ×3 (08:12→22:35)
[2019-03-31] MEDS: Budesonide/Formoterol 160/4.5 1 PUFF INH IH SCH ×2 (08:12→22:36)
[2019-03-31] MEDS: Acetylcysteine 10% 10 ML VIAL IH SCH ×2 (08:13→22:36)
[2019-03-31] MEDS: Cyanocobalamin (B-12) 1,000 MCG TABLET PO SCH (09:10)
[2019-03-31] MEDS: Bumetanide 1 MG TABLET PO SCH (09:10)
[2019-03-31] MEDS: Cholecalciferol (D-3) 1,000 UNIT (25MCG) TABLET PO SCH (09:10)
[2019-03-31] MEDS: amLODIPine 5 MG TABLET PO SCH (09:11)
[2019-03-31] MEDS: carvediloL 25 MG TABLET PO SCH ×2 (09:11→17:19)
[2019-03-31] MEDS: Nystatin SUSP 5 ML UD.LIQ PO SCH ×3 (12:55→20:32)
[2019-03-31] MEDS: Melatonin 3 MG TABLET PO SCH (20:32)
[2019-03-31] MEDS: *HR* LORazepam 1 MG TABLET PO SCH (20:32)
[2019-04-01 05:06] LABS: Influenza A PCR Body Fluid NOT DETECTED; Influenza B PCR Body Fluid NOT DETECTED
[2019-04-01] MEDS: Ascorbic Acid 500 MG TABLET PO SCH (06:17)
[2019-04-01] MEDS: *HR* Enoxaparin 40 MG/0.4 ML SYRINGE SQ SCH (06:17)
[2019-04-01 06:57] LABS: Basophils % 0.1 %; Eosinophils # 0.2 K/mcL (0.0-0.6); Eosinophils % 2.4 %; Hematocrit 30.8 % (37.5-50.1); Hemoglobin 9.4 g/dL (12.9-16.9); Immature Granulocytes % 1.2 % (0-4); Lymphocytes # 0.7 K/mcL (0.6-4.6); Lymphocytes % 7.7 %; Mean Corpuscular HGB Conc 30.5 g/dL (31.6-35.5); Mean Corpuscular Volume 85.3 fL (83.0-100.0); Mean Platelet Volume 9.4 fL (9.4-12.4); Monocytes # 0.9 K/mcL (0.0-1.3); Monocytes % 9.7 %; Neutrophils # 7.2 K/mcL (1.6-8.9); Platelet Count 211 K/mcL (140-400); Red Blood Count 3.61 M/mcL (4.19-5.50); Red Cell Distribution Width 16.6 % (11.5-14.5); Segmented Neutrophils % 78.9 %; White Blood Count 9.2 K/mcL (4.3-11.1)
[2019-04-01 07:17] LABS: Calcium 8.1 mg/dL (8.6-10.3); Potassium 4.1 mEq/L (3.5-5.1)
[2019-04-01] MEDS: Nystatin SUSP 5 ML UD.LIQ PO SCH ×4 (09:01→19:51)
[2019-04-01] MEDS: levoFLOXacin 500 MG TABLET PO SCH (09:01)
[2019-04-01] MEDS: amLODIPine 5 MG TABLET PO SCH (09:02)
[2019-04-01] MEDS: Cyanocobalamin (B-12) 1,000 MCG TABLET PO SCH (09:02)
[2019-04-01] MEDS: Cholecalciferol (D-3) 1,000 UNIT (25MCG) TABLET PO SCH (09:02)
[2019-04-01] MEDS: Bumetanide 1 MG TABLET PO SCH (09:02)
[2019-04-01] MEDS: carvediloL 25 MG TABLET PO SCH ×2 (09:02→16:24)
[2019-04-01] MEDS: Acetylcysteine 10% 10 ML VIAL IH SCH ×2 (10:22→22:25)
[2019-04-01] MEDS: Albuterol 2.5 MG/3 ML NEBULIZER IH PRN ×2 (10:23→22:24)
[2019-04-01] MEDS: Budesonide/Formoterol 160/4.5 1 PUFF INH IH SCH ×2 (10:26→22:25)
[2019-04-01 14:51] LABS: RSV PCR Body Fluid NOT DETECTED; RVP Body Fluid Source NOT PROVIDED
[2019-04-01] MEDS: Melatonin 3 MG TABLET PO SCH (19:51)
[2019-04-01] MEDS: *HR* LORazepam 1 MG TABLET PO SCH (19:51)
[2019-04-02] MEDS: Ascorbic Acid 500 MG TABLET PO SCH (07:01)
[2019-04-02] MEDS: *HR* Enoxaparin 40 MG/0.4 ML SYRINGE SQ SCH (07:01)
[2019-04-02] MEDS: carvediloL 25 MG TABLET PO SCH ×2 (08:49→16:54)
[2019-04-02] MEDS: amLODIPine 5 MG TABLET PO SCH (08:49)
[2019-04-02] MEDS: Nystatin SUSP 5 ML UD.LIQ PO SCH ×4 (08:49→21:42)
[2019-04-02] MEDS: Cholecalciferol (D-3) 1,000 UNIT (25MCG) TABLET PO SCH (08:49)
[2019-04-02] MEDS: Cyanocobalamin (B-12) 1,000 MCG TABLET PO SCH (08:49)
[2019-04-02] MEDS: Bumetanide 1 MG TABLET PO SCH (08:50)
[2019-04-02] MEDS: Budesonide/Formoterol 160/4.5 1 PUFF INH IH SCH ×2 (10:03→22:50)
[2019-04-02] MEDS: Acetylcysteine 10% 10 ML VIAL IH SCH ×2 (10:03→22:51)
[2019-04-02] MEDS: Albuterol 2.5 MG/3 ML NEBULIZER IH PRN ×2 (10:03→22:50)
[2019-04-02] MEDS: Melatonin 3 MG TABLET PO SCH (21:41)
[2019-04-02] MEDS: *HR* LORazepam 1 MG TABLET PO SCH (21:41)
[2019-04-03] MEDS: Ascorbic Acid 500 MG TABLET PO SCH (06:28)
[2019-04-03] MEDS: *HR* Enoxaparin 40 MG/0.4 ML SYRINGE SQ SCH (06:29)
[2019-04-03 07:11] LABS: Basophils % 0.2 %; Eosinophils # 0.2 K/mcL (0.0-0.6); Eosinophils % 2.3 %; Hematocrit 29.4 % (37.5-50.1); Immature Granulocytes % 0.4 % (0-4); Lymphocytes # 0.8 K/mcL (0.6-4.6); Lymphocytes % 8.6 %; Mean Corpuscular HGB Conc 30.6 g/dL (31.6-35.5); Mean Corpuscular Hemoglobin 26.1 pg (28.0-33.3); Mean Corpuscular Volume 85.2 fL (83.0-100.0); Mean Platelet Volume 9.3 fL (9.4-12.4); Monocytes # 1.3 K/mcL (0.0-1.3); Neutrophils # 7.3 K/mcL (1.6-8.9); Platelet Count 205 K/mcL (140-400); Red Blood Count 3.45 M/mcL (4.19-5.50); Red Cell Distribution Width 16.5 % (11.5-14.5); Segmented Neutrophils % 75.5 %; White Blood Count 9.7 K/mcL (4.3-11.1)
[2019-04-03] MEDS: carvediloL 25 MG TABLET PO SCH ×2 (07:43→17:42)
[2019-04-03] MEDS: Bumetanide 1 MG TABLET PO SCH (07:43)
[2019-04-03] MEDS: Nystatin SUSP 5 ML UD.LIQ PO SCH ×4 (07:43→20:50)
[2019-04-03] MEDS: Cyanocobalamin (B-12) 1,000 MCG TABLET PO SCH (07:44)
[2019-04-03] MEDS: amLODIPine 5 MG TABLET PO SCH (07:44)
[2019-04-03] MEDS: levoFLOXacin 500 MG TABLET PO SCH (07:44)
[2019-04-03] MEDS: Cholecalciferol (D-3) 1,000 UNIT (25MCG) TABLET PO SCH (07:44)
[2019-04-03 09:16] LABS: Calcium 8.2 mg/dL (8.6-10.3); Potassium 4.1 mEq/L (3.5-5.1)
[2019-04-03] MEDS: Acetylcysteine 10% 10 ML VIAL IH SCH (11:00)
[2019-04-03] MEDS: Budesonide/Formoterol 160/4.5 1 PUFF INH IH SCH ×2 (11:01→20:08)
[2019-04-03] MEDS: Ondansetron ODT 4 MG TAB.RAPDIS SL PRN (18:44)
[2019-04-03] MEDS: Albuterol 2.5 MG/3 ML NEBULIZER IH PRN (20:08)
[2019-04-03] MEDS: *HR* LORazepam 1 MG TABLET PO SCH (20:50)
[2019-04-03] MEDS: Melatonin 3 MG TABLET PO SCH (20:50)
[2019-04-04] MEDS ORDERED: *HR* Enoxaparin 30 MG/0.3 ML SYRINGE SQ SCH (06:00)
[2019-04-04] MEDS: Ascorbic Acid 500 MG TABLET PO SCH (06:45)
[2019-04-04 07:17] VITALS: BP 138/92
[2019-04-04] MEDS: Nystatin SUSP 5 ML UD.LIQ PO SCH (08:22)
[2019-04-04] MEDS: Ondansetron ODT 4 MG TAB.RAPDIS SL PRN (08:22)
[2019-04-04] MEDS: carvediloL 25 MG TABLET PO SCH (08:22)
[2019-04-04] MEDS: Cholecalciferol (D-3) 1,000 UNIT (25MCG) TABLET PO SCH (08:23)
[2019-04-04] MEDS: amLODIPine 5 MG TABLET PO SCH (08:23)
[2019-04-04] MEDS: Cyanocobalamin (B-12) 1,000 MCG TABLET PO SCH (08:23)
[2019-04-04] MEDS: Bumetanide 1 MG TABLET PO SCH (08:23)
[2019-04-04] MEDS: Albuterol 2.5 MG/3 ML NEBULIZER IH PRN (09:13)
[2019-04-04] MEDS: Budesonide/Formoterol 160/4.5 1 PUFF INH IH SCH (09:13)
== END 2019-04-04 13:00 | disposition home health service (06) | DRG 190 ==
LOC: INPPIK 03-28 02:41
PROVIDERS: ADMIT Internal Medicine; ATTEND Internal Medicine

== ENCOUNTER 2019-04-10 10:36 | Inpatient (IN) ==
[2019-04-10] MEDS ORDERED: Albuterol 2.5 MG/3 ML NEBULIZER IH PRN (11:19)
[2019-04-10] MEDS ORDERED: MOM Conc 10 ML UD.LIQ PO PRN (11:19)
[2019-04-10] MEDS ORDERED: Ondansetron 4 MG/2 ML VIAL IVP PRN (11:27)
[2019-04-10] MEDS ORDERED: Naloxone 0.4 MG/ML INJ IVP PRN (11:29)
[2019-04-10] MEDS: 0.9 % Sodium Chloride 1,000 ML IVC SCH ×2 (13:54→21:36)
[2019-04-10] MEDS: Ipratropium/Albuterol Neb 3 ML IH SCH ×2 (16:11→22:30)
[2019-04-10] MEDS: Lactobacillus 1 EACH CAP.SPRINK PO SCH (20:41)
[2019-04-10] MEDS: Melatonin 3 MG TABLET PO SCH (21:35)
[2019-04-10] MEDS: *HR* LORazepam 1 MG TABLET PO SCH (21:36)
[2019-04-11] MEDS ORDERED: *HR* Promethazine 25 MG/ML VIAL IVP PRN (03:06)
[2019-04-11] MEDS: Ipratropium/Albuterol Neb 3 ML IH SCH ×4 (04:47→22:16)
[2019-04-11] MEDS: *HR* Enoxaparin 40 MG/0.4 ML SYRINGE SQ SCH (05:53)
[2019-04-11 07:12] LABS: Basophils % 0.1 %; Hematocrit 28.7 % (37.5-50.1); Hemoglobin 8.6 g/dL (12.9-16.9); Immature Granulocytes % 0.7 % (0-4); Lymphocytes # 0.5 K/mcL (0.6-4.6); Lymphocytes % 5.7 %; Mean Corpuscular Hemoglobin 25.7 pg (28.0-33.3); Mean Corpuscular Volume 85.7 fL (83.0-100.0); Mean Platelet Volume 9.1 fL (9.4-12.4); Monocytes # 0.5 K/mcL (0.0-1.3); Monocytes % 5.4 %; Neutrophils # 7.7 K/mcL (1.6-8.9); Platelet Count 316 K/mcL (140-400); Red Blood Count 3.35 M/mcL (4.19-5.50); Red Cell Distribution Width 15.7 % (11.5-14.5); Segmented Neutrophils % 88.1 %; White Blood Count 8.8 K/mcL (4.3-11.1)
[2019-04-11 07:29] LABS: Calcium 7.9 mg/dL (8.6-10.3); Potassium 4.8 mEq/L (3.5-5.1)
[2019-04-11] MEDS: Lactobacillus 1 EACH CAP.SPRINK PO SCH ×2 (08:14→20:28)
[2019-04-11] MEDS: predniSONE 20 MG TABLET PO SCH (08:14)
[2019-04-11] MEDS ORDERED: levoFLOXacin 750 MG/150 ML 750 MG/150 ML BAG IVPB SCH (09:00)
[2019-04-11 10:50] LABS: Estimated Average Glucose 171 mg/dl
[2019-04-11] MEDS: *HR* Glimepiride 2 MG TABLET PO SCH (12:29)
[2019-04-11] MEDS: Melatonin 3 MG TABLET PO SCH (20:28)
[2019-04-11] MEDS: *HR* LORazepam 1 MG TABLET PO SCH (20:28)
[2019-04-12] MEDS: Ipratropium/Albuterol Neb 3 ML IH SCH ×4 (04:28→22:11)
[2019-04-12 06:31] LABS: Basophils % 0.1 %; Eosinophils % 0.1 %; Hematocrit 28.6 % (37.5-50.1); Hemoglobin 8.7 g/dL (12.9-16.9); Immature Granulocytes % 0.8 % (0-4); Lymphocytes # 0.9 K/mcL (0.6-4.6); Lymphocytes % 7.8 %; Mean Corpuscular HGB Conc 30.4 g/dL (31.6-35.5); Mean Corpuscular Volume 85.6 fL (83.0-100.0); Mean Platelet Volume 8.8 fL (9.4-12.4); Monocytes # 0.9 K/mcL (0.0-1.3); Monocytes % 8.5 %; Platelet Count 344 K/mcL (140-400); Red Blood Count 3.34 M/mcL (4.19-5.50); Segmented Neutrophils % 82.7 %; White Blood Count 10.9 K/mcL (4.3-11.1)
[2019-04-12] MEDS: *HR* Enoxaparin 40 MG/0.4 ML SYRINGE SQ SCH (06:49)
[2019-04-12 06:56] LABS: Calcium 8.2 mg/dL (8.6-10.3); Potassium 4.4 mEq/L (3.5-5.1)
[2019-04-12] MEDS ORDERED: levoFLOXacin 750 MG/150 ML 750 MG/150 ML BAG IVPB SCH (09:00)
[2019-04-12] MEDS: Lactobacillus 1 EACH CAP.SPRINK PO SCH ×2 (09:44→20:58)
[2019-04-12] MEDS: *HR* Glimepiride 2 MG TABLET PO SCH (09:44)
[2019-04-12] MEDS: predniSONE 20 MG TABLET PO SCH (09:44)
[2019-04-12] MEDS: Nystatin SUSP 5 ML UD.LIQ PO SCH ×2 (15:47→20:59)
[2019-04-12] MEDS: Melatonin 3 MG TABLET PO SCH (20:59)
[2019-04-12] MEDS: *HR* LORazepam 1 MG TABLET PO SCH (20:59)
[2019-04-13] MEDS: Ipratropium/Albuterol Neb 3 ML IH SCH ×4 (04:00→22:49)
[2019-04-13] MEDS: *HR* Enoxaparin 40 MG/0.4 ML SYRINGE SQ SCH (06:53)
[2019-04-13] MEDS: Lactobacillus 1 EACH CAP.SPRINK PO SCH ×2 (08:49→20:03)
[2019-04-13] MEDS: *HR* Glimepiride 2 MG TABLET PO SCH (08:49)
[2019-04-13] MEDS: Nystatin SUSP 5 ML UD.LIQ PO SCH ×4 (08:49→20:03)
[2019-04-13] MEDS: predniSONE 10 MG TABLET PO SCH (08:50)
[2019-04-13] MEDS ORDERED: levoFLOXacin 250 MG TABLET PO SCH (09:00)
[2019-04-13] MEDS: *HR* LORazepam 1 MG TABLET PO SCH (20:03)
[2019-04-13] MEDS: Melatonin 3 MG TABLET PO SCH (20:03)
[2019-04-14] MEDS: Ipratropium/Albuterol Neb 3 ML IH SCH ×4 (03:54→23:21)
[2019-04-14 05:31] LABS: Basophils % 0.3 %; Eosinophils # 0.2 K/mcL (0.0-0.6); Eosinophils % 1.5 %; Hematocrit 29.2 % (37.5-50.1); Hemoglobin 9.1 g/dL (12.9-16.9); Immature Granulocytes % 2.3 % (0-4); Lymphocytes # 1.1 K/mcL (0.6-4.6); Lymphocytes % 10.3 %; Mean Corpuscular HGB Conc 31.2 g/dL (31.6-35.5); Mean Corpuscular Hemoglobin 26.2 pg (28.0-33.3); Mean Corpuscular Volume 84.1 fL (83.0-100.0); Mean Platelet Volume 8.8 fL (9.4-12.4); Monocytes # 1.3 K/mcL (0.0-1.3); Monocytes % 11.7 %; Neutrophils # 7.9 K/mcL (1.6-8.9); Nucleated Red Blood Cells 0.3 /100 WBC (0); Platelet Count 410 K/mcL (140-400); Red Blood Count 3.47 M/mcL (4.19-5.50); Red Cell Distribution Width 16.2 % (11.5-14.5); Segmented Neutrophils % 73.9 %; White Blood Count 10.8 K/mcL (4.3-11.1)
[2019-04-14 05:50] LABS: Calcium 8.3 mg/dL (8.6-10.3); Potassium 3.9 mEq/L (3.5-5.1)
[2019-04-14] MEDS: *HR* Enoxaparin 40 MG/0.4 ML SYRINGE SQ SCH (06:34)
[2019-04-14] MEDS: *HR* Glimepiride 2 MG TABLET PO SCH (08:30)
[2019-04-14] MEDS: Lactobacillus 1 EACH CAP.SPRINK PO SCH (08:30)
[2019-04-14] MEDS: predniSONE 10 MG TABLET PO SCH (08:30)
[2019-04-14] MEDS: Nystatin SUSP 5 ML UD.LIQ PO SCH ×4 (08:30→20:18)
[2019-04-14] MEDS: *HR* LORazepam 1 MG TABLET PO SCH (20:18)
[2019-04-14] MEDS: Melatonin 3 MG TABLET PO SCH (20:18)
[2019-04-15] MEDS: Ipratropium/Albuterol Neb 3 ML IH SCH ×4 (04:37→22:55)
[2019-04-15] MEDS: *HR* Enoxaparin 40 MG/0.4 ML SYRINGE SQ SCH (06:22)
[2019-04-15 07:00] LABS: Basophils # 0.1 K/mcL (0.0-0.2); Basophils % 0.5 %; Eosinophils # 0.3 K/mcL (0.0-0.6); Eosinophils % 2.5 %; Hematocrit 32.2 % (37.5-50.1); Hemoglobin 9.8 g/dL (12.9-16.9); Lymphocytes # 1.2 K/mcL (0.6-4.6); Lymphocytes % 10.5 %; Mean Corpuscular HGB Conc 30.4 g/dL (31.6-35.5); Mean Corpuscular Hemoglobin 25.9 pg (28.0-33.3); Mean Corpuscular Volume 85.2 fL (83.0-100.0); Mean Platelet Volume 8.8 fL (9.4-12.4); Monocytes # 1.3 K/mcL (0.0-1.3); Monocytes % 11.7 %; Nucleated Red Blood Cells 0.3 /100 WBC (0); Platelet Count 406 K/mcL (140-400); Red Blood Count 3.78 M/mcL (4.19-5.50); Red Cell Distribution Width 16.6 % (11.5-14.5); Segmented Neutrophils % 71.8 %; White Blood Count 11.1 K/mcL (4.3-11.1)
[2019-04-15 07:19] LABS: Calcium 8.6 mg/dL (8.6-10.3); Potassium 3.9 mEq/L (3.5-5.1)
[2019-04-15] MEDS: *HR* Glimepiride 2 MG TABLET PO SCH (08:58)
[2019-04-15] MEDS ORDERED: levoFLOXacin 250 MG TABLET PO SCH (09:00)
[2019-04-15] MEDS: Nystatin SUSP 5 ML UD.LIQ PO SCH ×4 (10:20→19:41)
[2019-04-15 13:35] LABS: INR 1.2; Prothrombin Time 13.1 Seconds (9.4-12.1)
[2019-04-15] MEDS: *HR* LORazepam 1 MG TABLET PO SCH (19:40)
[2019-04-15] MEDS: Melatonin 3 MG TABLET PO SCH (19:40)
[2019-04-16] MEDS: Ipratropium/Albuterol Neb 3 ML IH SCH ×4 (03:51→21:01)
[2019-04-16 06:18] LABS: Basophils # 0.1 K/mcL (0.0-0.2); Basophils % 0.4 %; Eosinophils # 0.4 K/mcL (0.0-0.6); Hematocrit 27.6 % (37.5-50.1); Hemoglobin 8.6 g/dL (12.9-16.9); Immature Granulocytes % 2.7 % (0-4); Lymphocytes # 1.2 K/mcL (0.6-4.6); Lymphocytes % 8.5 %; Mean Corpuscular HGB Conc 31.2 g/dL (31.6-35.5); Mean Corpuscular Hemoglobin 26.5 pg (28.0-33.3); Mean Corpuscular Volume 85.2 fL (83.0-100.0); Mean Platelet Volume 8.9 fL (9.4-12.4); Monocytes # 1.5 K/mcL (0.0-1.3); Monocytes % 10.4 %; Platelet Count 385 K/mcL (140-400); Red Blood Count 3.24 M/mcL (4.19-5.50); Red Cell Distribution Width 17.1 % (11.5-14.5); White Blood Count 14.2 K/mcL (4.3-11.1)
[2019-04-16 06:21] LABS: Neutrophils # 10.7 K/mcL (1.6-8.9)
[2019-04-16 06:37] LABS: Albumin 2.7 g/dL (3.5-5.7); Albumin/Globulin Ratio 1.1 (1.1-2.2); Bilirubin,Total 0.3 mg/dL (0.3-1.0); Calcium 8.2 mg/dL (8.6-10.3); Globulin 2.5 g/dL (2.4-3.5); Potassium 3.9 mEq/L (3.5-5.1); Total Protein 5.2 g/dL (6.4-8.9)
[2019-04-16] MEDS: Nystatin SUSP 5 ML UD.LIQ PO SCH ×4 (08:41→20:12)
[2019-04-16] MEDS: *HR* Glimepiride 2 MG TABLET PO SCH (08:42)
[2019-04-16] MEDS: *HR* Enoxaparin 40 MG/0.4 ML SYRINGE SQ SCH (09:57)
[2019-04-16] MEDS: 0.9 % Sodium Chloride 1,000 ML IVC SCH (20:12)
[2019-04-16] MEDS: *HR* LORazepam 1 MG TABLET PO SCH (20:13)
[2019-04-16] MEDS: Melatonin 3 MG TABLET PO SCH (20:13)
[2019-04-17] MEDS: Ipratropium/Albuterol Neb 3 ML IH SCH ×4 (04:00→22:49)
[2019-04-17] MEDS: 0.9 % Sodium Chloride 1,000 ML IVC SCH ×2 (06:08→15:50)
[2019-04-17] MEDS: *HR* Enoxaparin 40 MG/0.4 ML SYRINGE SQ SCH (06:09)
[2019-04-17 06:44] LABS: Hematocrit 26.3 % (37.5-50.1); Mean Corpuscular HGB Conc 30.4 g/dL (31.6-35.5); Mean Corpuscular Hemoglobin 26.4 pg (28.0-33.3); Mean Corpuscular Volume 86.8 fL (83.0-100.0); Mean Platelet Volume 9.1 fL (9.4-12.4); Platelet Count 334 K/mcL (140-400); Red Blood Count 3.03 M/mcL (4.19-5.50); Red Cell Distribution Width 17.2 % (11.5-14.5); White Blood Count 13.2 K/mcL (4.3-11.1)
[2019-04-17 07:07] LABS: Calcium 7.8 mg/dL (8.6-10.3); Magnesium 2.2 mg/dL (1.6-2.6); Potassium 3.6 mEq/L (3.5-5.1)
[2019-04-17] MEDS: Nystatin SUSP 5 ML UD.LIQ PO SCH ×4 (08:42→21:25)
[2019-04-17] MEDS: *HR* Glimepiride 2 MG TABLET PO SCH (08:42)
[2019-04-17] MEDS: Melatonin 3 MG TABLET PO SCH (21:25)
[2019-04-17] MEDS: *HR* LORazepam 1 MG TABLET PO SCH (21:25)
[2019-04-18] MEDS: Ipratropium/Albuterol Neb 3 ML IH SCH ×2 (04:40→09:26)
[2019-04-18] MEDS: *HR* Enoxaparin 40 MG/0.4 ML SYRINGE SQ SCH (05:07)
[2019-04-18 06:22] VITALS: BP 152/80
[2019-04-18] MEDS: Nystatin SUSP 5 ML UD.LIQ PO SCH (09:31)
[2019-04-18] MEDS: *HR* Glimepiride 2 MG TABLET PO SCH (09:39)
== END 2019-04-18 13:35 | disposition home health service (06) | DRG 190 ==
LOC: INPPIK 11:03
PROVIDERS: ADMIT Family Medicine; ATTEND Family Medicine

== ENCOUNTER 2019-04-24 11:27 | Inpatient (IN) ==
[2019-04-24] MEDS: Ipratropium/Albuterol Neb 3 ML IH SCH ×3 (13:31→22:13)
[2019-04-24] MEDS: Budesonide/Formoterol 160/4.5 1 PUFF INH IH SCH ×2 (13:31→22:14)
[2019-04-24] MEDS: Bumetanide 1 MG TABLET PO SCH (13:44)
[2019-04-24] MEDS: amLODIPine 5 MG TABLET PO SCH (13:44)
[2019-04-24] MEDS ORDERED: Furosemide 20 MG/2 ML VIAL IVP ONE (15:44)
[2019-04-24] MEDS: carvediloL 25 MG TABLET PO SCH (17:19)
[2019-04-24] MEDS: *HR* LORazepam 1 MG TABLET PO SCH (21:39)
[2019-04-24] MEDS: Melatonin 3 MG TABLET PO SCH (21:39)
[2019-04-25] MEDS: Ipratropium/Albuterol Neb 3 ML IH SCH ×4 (04:46→20:03)
[2019-04-25 05:35] LABS: Basophils % 0.2 %; Eosinophils # 0.1 K/mcL (0.0-0.6); Hematocrit 24.2 % (37.5-50.1); Hemoglobin 7.4 g/dL (12.9-16.9); Immature Granulocytes % 0.5 % (0-4); Lymphocytes % 7.2 %; Mean Corpuscular HGB Conc 30.6 g/dL (31.6-35.5); Mean Corpuscular Hemoglobin 26.1 pg (28.0-33.3); Mean Corpuscular Volume 85.5 fL (83.0-100.0); Mean Platelet Volume 8.7 fL (9.4-12.4); Monocytes # 1.5 K/mcL (0.0-1.3); Monocytes % 10.5 %; Neutrophils # 11.5 K/mcL (1.6-8.9); Platelet Count 316 K/mcL (140-400); Red Blood Count 2.83 M/mcL (4.19-5.50); Red Cell Distribution Width 17.2 % (11.5-14.5); Segmented Neutrophils % 80.6 %; White Blood Count 14.2 K/mcL (4.3-11.1)
[2019-04-25] MEDS: Ascorbic Acid 500 MG TABLET PO SCH (05:44)
[2019-04-25] MEDS: *HR* Enoxaparin 30 MG/0.3 ML SYRINGE SQ SCH (05:44)
[2019-04-25 06:00] LABS: Calcium 8.5 mg/dL (8.6-10.3)
[2019-04-25] MEDS: Bumetanide 1 MG TABLET PO SCH (08:37)
[2019-04-25] MEDS: amLODIPine 5 MG TABLET PO SCH (08:37)
[2019-04-25] MEDS: *HR* Glimepiride 2 MG TABLET PO SCH (08:38)
[2019-04-25] MEDS: Cyanocobalamin (B-12) 1,000 MCG TABLET PO SCH (08:38)
[2019-04-25] MEDS: carvediloL 25 MG TABLET PO SCH ×2 (08:38→18:02)
[2019-04-25] MEDS: Cholecalciferol (D-3) 1,000 UNIT (25MCG) TABLET PO SCH (08:38)
[2019-04-25] MEDS: Budesonide/Formoterol 160/4.5 1 PUFF INH IH SCH ×2 (10:31→20:03)
[2019-04-25] MEDS ORDERED: Hydrocortisone Rectal 2.5% CRM 28 GM TUBE RC PRN (15:29)
[2019-04-25] MEDS: *HR* LORazepam 1 MG TABLET PO SCH (22:32)
[2019-04-25] MEDS: Melatonin 3 MG TABLET PO SCH (22:33)
[2019-04-26] MEDS: Ipratropium/Albuterol Neb 3 ML IH SCH ×4 (04:07→21:12)
[2019-04-26] MEDS: *HR* Enoxaparin 30 MG/0.3 ML SYRINGE SQ SCH (06:01)
[2019-04-26] MEDS: Ascorbic Acid 500 MG TABLET PO SCH (06:01)
[2019-04-26] MEDS: amLODIPine 5 MG TABLET PO SCH (10:15)
[2019-04-26] MEDS: carvediloL 25 MG TABLET PO SCH ×2 (10:15→18:31)
[2019-04-26] MEDS: Cyanocobalamin (B-12) 1,000 MCG TABLET PO SCH (10:15)
[2019-04-26] MEDS: *HR* Glimepiride 2 MG TABLET PO SCH (10:15)
[2019-04-26] MEDS: Cholecalciferol (D-3) 1,000 UNIT (25MCG) TABLET PO SCH (10:15)
[2019-04-26] MEDS: Budesonide/Formoterol 160/4.5 1 PUFF INH IH SCH ×2 (10:52→21:12)
[2019-04-26] MEDS: *HR* OxyCODONE/APAP 5/325 TABLET PO PRN (12:24)
[2019-04-26] MEDS ORDERED: Bisacodyl 10 MG RECTAL SUPPOSITORY RC PRN (15:00)
[2019-04-26] MEDS: Bumetanide 1 MG TABLET PO SCH ×2 (18:31→20:23)
[2019-04-26] MEDS: Lactulose Oral Soln 20 GM/30 ML UDC PO SCH (22:22)
[2019-04-26] MEDS: *HR* LORazepam 1 MG TABLET PO SCH (22:25)
[2019-04-26] MEDS: Sennosides/Docusate Sodium TABLET PO SCH (22:25)
[2019-04-26] MEDS: Melatonin 3 MG TABLET PO SCH (22:25)
[2019-04-27] MEDS ORDERED: Furosemide 20 MG/2 ML VIAL IVP PRN (01:02)
[2019-04-27] MEDS: Ipratropium/Albuterol Neb 3 ML IH SCH ×4 (04:20→21:55)
[2019-04-27] MEDS: *HR* Enoxaparin 30 MG/0.3 ML SYRINGE SQ SCH (05:09)
[2019-04-27] MEDS: Ascorbic Acid 500 MG TABLET PO SCH (05:10)
[2019-04-27 05:58] LABS: Hematocrit 21.8 % (37.5-50.1); Hemoglobin 6.8 g/dL (12.9-16.9); Mean Corpuscular HGB Conc 31.2 g/dL (31.6-35.5); Mean Corpuscular Hemoglobin 26.8 pg (28.0-33.3); Mean Corpuscular Volume 85.8 fL (83.0-100.0); Mean Platelet Volume 8.4 fL (9.4-12.4); Platelet Count 264 K/mcL (140-400); Red Blood Count 2.54 M/mcL (4.19-5.50); Red Cell Distribution Width 16.9 % (11.5-14.5); White Blood Count 10.7 K/mcL (4.3-11.1)
[2019-04-27 06:48] LABS: Calcium 8.3 mg/dL (8.6-10.3); Potassium 4.6 mEq/L (3.5-5.1)
[2019-04-27] MEDS: Cholecalciferol (D-3) 1,000 UNIT (25MCG) TABLET PO SCH (08:11)
[2019-04-27] MEDS: Cyanocobalamin (B-12) 1,000 MCG TABLET PO SCH (08:11)
[2019-04-27] MEDS: carvediloL 25 MG TABLET PO SCH ×2 (08:11→17:14)
[2019-04-27] MEDS: amLODIPine 5 MG TABLET PO SCH (08:11)
[2019-04-27] MEDS: *HR* OxyCODONE/APAP 5/325 TABLET PO PRN ×2 (08:11→14:35)
[2019-04-27] MEDS: Sennosides/Docusate Sodium TABLET PO SCH ×2 (08:11→20:31)
[2019-04-27] MEDS: Bumetanide 1 MG TABLET PO SCH ×2 (08:12→17:14)
[2019-04-27] MEDS: *HR* Glimepiride 2 MG TABLET PO SCH (08:12)
[2019-04-27] MEDS: Lactulose Oral Soln 20 GM/30 ML UDC PO SCH ×2 (08:12→20:29)
[2019-04-27] MEDS: Budesonide/Formoterol 160/4.5 1 PUFF INH IH SCH ×2 (09:13→21:57)
[2019-04-27 14:39] LABS: Basophils % 0.3 %; Eosinophils # 0.1 K/mcL (0.0-0.6); Eosinophils % 1.3 %; Hematocrit 22.5 % (37.5-50.1); Hemoglobin 6.8 g/dL (12.9-16.9); Immature Granulocytes % 0.5 % (0-4); Lymphocytes # 0.9 K/mcL (0.6-4.6); Lymphocytes % 9.6 %; Mean Corpuscular HGB Conc 30.2 g/dL (31.6-35.5); Mean Corpuscular Hemoglobin 26.1 pg (28.0-33.3); Mean Corpuscular Volume 86.2 fL (83.0-100.0); Mean Platelet Volume 8.6 fL (9.4-12.4); Monocytes % 10.7 %; Neutrophils # 7.5 K/mcL (1.6-8.9); Platelet Count 285 K/mcL (140-400); Red Blood Count 2.61 M/mcL (4.19-5.50); Red Cell Distribution Width 16.9 % (11.5-14.5); Segmented Neutrophils % 77.6 %; White Blood Count 9.7 K/mcL (4.3-11.1)
[2019-04-27] MEDS ORDERED: 0.9 % Sodium Chloride 250 ML IVC SCH ×2 (17:00→17:06)
[2019-04-27] MEDS: Melatonin 3 MG TABLET PO SCH (20:30)
[2019-04-27] MEDS: *HR* LORazepam 1 MG TABLET PO SCH (20:31)
[2019-04-28] MEDS: Ipratropium/Albuterol Neb 3 ML IH SCH ×5 (05:04→21:31)
[2019-04-28] MEDS: *HR* Enoxaparin 40 MG/0.4 ML SYRINGE SQ SCH (05:38)
[2019-04-28] MEDS: Ascorbic Acid 500 MG TABLET PO SCH (05:38)
[2019-04-28 07:34] LABS: Basophils % 0.4 %; Eosinophils # 0.2 K/mcL (0.0-0.6); Eosinophils % 2.2 %; Hematocrit 27.3 % (37.5-50.1); Hemoglobin 8.4 g/dL (12.9-16.9); Immature Granulocytes % 0.5 % (0-4); Lymphocytes # 0.8 K/mcL (0.6-4.6); Lymphocytes % 9.3 %; Mean Corpuscular HGB Conc 30.8 g/dL (31.6-35.5); Mean Corpuscular Hemoglobin 26.5 pg (28.0-33.3); Mean Corpuscular Volume 86.1 fL (83.0-100.0); Mean Platelet Volume 8.6 fL (9.4-12.4); Monocytes # 0.8 K/mcL (0.0-1.3); Monocytes % 9.7 %; Neutrophils # 6.6 K/mcL (1.6-8.9); Platelet Count 306 K/mcL (140-400); Red Blood Count 3.17 M/mcL (4.19-5.50); Red Cell Distribution Width 15.9 % (11.5-14.5); Segmented Neutrophils % 77.9 %; White Blood Count 8.5 K/mcL (4.3-11.1)
[2019-04-28] MEDS: Budesonide/Formoterol 160/4.5 1 PUFF INH IH SCH ×2 (09:04→21:31)
[2019-04-28] MEDS: Lactulose Oral Soln 20 GM/30 ML UDC PO SCH ×2 (10:08→20:40)
[2019-04-28] MEDS: Sennosides/Docusate Sodium TABLET PO SCH ×2 (10:08→20:39)
[2019-04-28] MEDS: Bumetanide 1 MG TABLET PO SCH ×2 (10:08→18:04)
[2019-04-28] MEDS: carvediloL 25 MG TABLET PO SCH ×2 (10:09→18:04)
[2019-04-28] MEDS: *HR* Glimepiride 2 MG TABLET PO SCH (10:09)
[2019-04-28] MEDS: amLODIPine 5 MG TABLET PO SCH (10:09)
[2019-04-28] MEDS: Cholecalciferol (D-3) 1,000 UNIT (25MCG) TABLET PO SCH (10:09)
[2019-04-28] MEDS: Simethicone 80 MG TAB.CHEW PO PRN ×2 (10:09→20:40)
[2019-04-28] MEDS: Cyanocobalamin (B-12) 1,000 MCG TABLET PO SCH (10:09)
[2019-04-28] MEDS: *HR* LORazepam 1 MG TABLET PO SCH (20:40)
[2019-04-28] MEDS: Melatonin 3 MG TABLET PO SCH (20:40)
[2019-04-28 21:02] LABS: Iron < 10 mcg/dL (65-175); Transferrin 134 mg/dL (203-362)
[2019-04-29] MEDS: Ipratropium/Albuterol Neb 3 ML IH SCH ×4 (04:32→21:52)
[2019-04-29] MEDS: *HR* Enoxaparin 40 MG/0.4 ML SYRINGE SQ SCH (05:48)
[2019-04-29] MEDS: Ascorbic Acid 500 MG TABLET PO SCH (05:48)
[2019-04-29 06:23] LABS: Hematocrit 26.2 % (37.5-50.1); Hemoglobin 8.1 g/dL (12.9-16.9); Mean Corpuscular HGB Conc 30.9 g/dL (31.6-35.5); Mean Corpuscular Hemoglobin 26.6 pg (28.0-33.3); Mean Corpuscular Volume 85.9 fL (83.0-100.0); Platelet Count 306 K/mcL (140-400); Red Blood Count 3.05 M/mcL (4.19-5.50); Red Cell Distribution Width 15.9 % (11.5-14.5); White Blood Count 7.9 K/mcL (4.3-11.1)
[2019-04-29 06:41] LABS: Calcium 8.6 mg/dL (8.6-10.3); Potassium 3.9 mEq/L (3.5-5.1)
[2019-04-29] MEDS: Lactulose Oral Soln 20 GM/30 ML UDC PO SCH ×2 (09:13→21:16)
[2019-04-29] MEDS: carvediloL 25 MG TABLET PO SCH ×2 (09:17→16:09)
[2019-04-29] MEDS: *HR* Glimepiride 2 MG TABLET PO SCH (09:17)
[2019-04-29] MEDS: Bumetanide 1 MG TABLET PO SCH ×2 (09:17→16:09)
[2019-04-29] MEDS: Cyanocobalamin (B-12) 1,000 MCG TABLET PO SCH (09:18)
[2019-04-29] MEDS: Cholecalciferol (D-3) 1,000 UNIT (25MCG) TABLET PO SCH (09:18)
[2019-04-29] MEDS: Sennosides/Docusate Sodium TABLET PO SCH ×2 (09:18→21:17)
[2019-04-29] MEDS: amLODIPine 5 MG TABLET PO SCH (09:18)
[2019-04-29] MEDS: Budesonide/Formoterol 160/4.5 1 PUFF INH IH SCH ×2 (10:33→21:52)
[2019-04-29] MEDS: *HR* LORazepam 1 MG TABLET PO SCH (21:16)
[2019-04-29] MEDS: Melatonin 3 MG TABLET PO SCH (21:16)
[2019-04-30] MEDS: Ipratropium/Albuterol Neb 3 ML IH SCH ×4 (04:16→21:23)
[2019-04-30] MEDS: *HR* Enoxaparin 40 MG/0.4 ML SYRINGE SQ SCH (05:44)
[2019-04-30] MEDS: Ascorbic Acid 500 MG TABLET PO SCH (05:44)
[2019-04-30] MEDS: Cholecalciferol (D-3) 1,000 UNIT (25MCG) TABLET PO SCH (09:18)
[2019-04-30] MEDS: Bumetanide 1 MG TABLET PO SCH ×2 (09:18→18:39)
[2019-04-30] MEDS: carvediloL 25 MG TABLET PO SCH ×2 (09:19→18:39)
[2019-04-30] MEDS: Cyanocobalamin (B-12) 1,000 MCG TABLET PO SCH (09:19)
[2019-04-30] MEDS: amLODIPine 5 MG TABLET PO SCH (09:19)
[2019-04-30] MEDS: *HR* Glimepiride 2 MG TABLET PO SCH (09:20)
[2019-04-30] MEDS: Lactulose Oral Soln 20 GM/30 ML UDC PO SCH ×2 (09:21→22:36)
[2019-04-30] MEDS: Sennosides/Docusate Sodium TABLET PO SCH ×2 (09:22→22:36)
[2019-04-30] MEDS: Budesonide/Formoterol 160/4.5 1 PUFF INH IH SCH ×2 (09:28→21:23)
[2019-04-30] MEDS: Melatonin 3 MG TABLET PO SCH (22:36)
[2019-04-30] MEDS: *HR* LORazepam 1 MG TABLET PO SCH (22:36)
[2019-05-01] MEDS: Ipratropium/Albuterol Neb 3 ML IH SCH ×4 (04:00→21:26)
[2019-05-01] MEDS: *HR* Enoxaparin 40 MG/0.4 ML SYRINGE SQ SCH (05:21)
[2019-05-01] MEDS: Ascorbic Acid 500 MG TABLET PO SCH (05:21)
[2019-05-01] MEDS: Budesonide/Formoterol 160/4.5 1 PUFF INH IH SCH ×2 (08:14→21:26)
[2019-05-01] MEDS: Bumetanide 1 MG TABLET PO SCH ×2 (08:25→16:02)
[2019-05-01] MEDS: amLODIPine 5 MG TABLET PO SCH (08:26)
[2019-05-01] MEDS: carvediloL 25 MG TABLET PO SCH ×2 (08:26→16:02)
[2019-05-01] MEDS: Cyanocobalamin (B-12) 1,000 MCG TABLET PO SCH (08:26)
[2019-05-01] MEDS: *HR* Glimepiride 2 MG TABLET PO SCH (08:26)
[2019-05-01] MEDS: Cholecalciferol (D-3) 1,000 UNIT (25MCG) TABLET PO SCH (08:27)
[2019-05-01] MEDS: Lactulose Oral Soln 20 GM/30 ML UDC PO SCH ×2 (08:28→19:44)
[2019-05-01] MEDS: Sennosides/Docusate Sodium TABLET PO SCH ×2 (08:29→19:44)
[2019-05-01] MEDS: Melatonin 3 MG TABLET PO SCH (19:43)
[2019-05-01] MEDS: *HR* LORazepam 1 MG TABLET PO SCH (19:44)
[2019-05-02] MEDS: Ipratropium/Albuterol Neb 3 ML IH SCH ×4 (04:36→21:27)
[2019-05-02] MEDS: Ascorbic Acid 500 MG TABLET PO SCH (06:08)
[2019-05-02] MEDS: *HR* Enoxaparin 40 MG/0.4 ML SYRINGE SQ SCH (06:08)
[2019-05-02] MEDS: Bumetanide 1 MG TABLET PO SCH ×2 (08:18→17:28)
[2019-05-02] MEDS: Cholecalciferol (D-3) 1,000 UNIT (25MCG) TABLET PO SCH (08:18)
[2019-05-02] MEDS: Cyanocobalamin (B-12) 1,000 MCG TABLET PO SCH (08:18)
[2019-05-02] MEDS: carvediloL 25 MG TABLET PO SCH ×2 (08:18→17:29)
[2019-05-02] MEDS: Sennosides/Docusate Sodium TABLET PO SCH ×2 (08:18→21:13)
[2019-05-02] MEDS: *HR* Glimepiride 2 MG TABLET PO SCH (08:18)
[2019-05-02] MEDS: Lactulose Oral Soln 20 GM/30 ML UDC PO SCH ×2 (08:19→21:13)
[2019-05-02] MEDS: amLODIPine 5 MG TABLET PO SCH (08:19)
[2019-05-02] MEDS: Budesonide/Formoterol 160/4.5 1 PUFF INH IH SCH ×2 (08:35→21:28)
[2019-05-02] MEDS: Melatonin 3 MG TABLET PO SCH (21:13)
[2019-05-02] MEDS: *HR* LORazepam 1 MG TABLET PO SCH (21:13)
[2019-05-03] MEDS: Ipratropium/Albuterol Neb 3 ML IH SCH ×2 (04:37→10:30)
[2019-05-03] MEDS: *HR* Enoxaparin 40 MG/0.4 ML SYRINGE SQ SCH (05:23)
[2019-05-03] MEDS: Ascorbic Acid 500 MG TABLET PO SCH (05:24)
[2019-05-03 06:59] VITALS: BP 119/59
[2019-05-03] MEDS: Bumetanide 1 MG TABLET PO SCH (09:22)
[2019-05-03] MEDS: Cholecalciferol (D-3) 1,000 UNIT (25MCG) TABLET PO SCH (09:23)
[2019-05-03] MEDS: Cyanocobalamin (B-12) 1,000 MCG TABLET PO SCH (09:23)
[2019-05-03] MEDS: amLODIPine 5 MG TABLET PO SCH (09:23)
[2019-05-03] MEDS: *HR* Glimepiride 2 MG TABLET PO SCH (09:23)
[2019-05-03] MEDS: Sennosides/Docusate Sodium TABLET PO SCH (09:23)
[2019-05-03] MEDS: carvediloL 25 MG TABLET PO SCH (09:23)
[2019-05-03] MEDS: Lactulose Oral Soln 20 GM/30 ML UDC PO SCH (09:24)
[2019-05-03] MEDS: Budesonide/Formoterol 160/4.5 1 PUFF INH IH SCH (10:30)
== END 2019-05-03 14:20 | disposition hospice, home (50) | DRG 945 ==
LOC: INPPIK 11:27
PROVIDERS: ADMIT Family Medicine; ATTEND Family Medicine